=== PATIENT | male | born 1950 | race Caucasian/White ===

== ENCOUNTER 2017-10-25 16:05 | Emergency (ER) | payer SELFPAY, OTHER, MEDICARE | END 2017-10-25 21:07 | disposition left against medical advice (07) | LOC: E/R 16:05 | DX: Z53.21 Procedure and treatment not carried out due to patient leaving prior to being seen by health care provider (principal) ==

== ENCOUNTER 2017-11-22 15:49 | Inpatient (IN) | payer MEDICARE, OTHER ==
[2017-11-23 00:34] LABS: ADD MAN DIFF? NO
[2017-11-23 00:35] LABS: WHITE BLOOD COUNT 5.5 10^3/ul (4.8-10.8)
[2017-11-23 00:35] LABS: BASOPHIL # 0.1 10^3/ul (0.0-0.1); BASOPHILS % 1.1 % (0.0-2.0); EOSINOPHILS # 0.3 10^3/ul (0.0-0.5); EOSINOPHILS % 4.7 % (0.0-7.0); HEMATOCRIT 28.2 % (42.0-52.0); HEMOGLOBIN 9.4 g/dl (14.0-18.0); LYMPHOCYTES # 0.8 10^3/ul (0.8-2.9); LYMPHOCYTES % 13.8 % (15.0-51.0); MEAN CORPUSCULAR HEMOGLOBIN 30.5 pg (29.0-33.0); MEAN CORPUSCULAR HGB CONC 33.3 g/dl (32.0-37.0); MEAN CORPUSCULAR VOLUME 91.6 fl (82.0-101.0); MEAN PLATELET VOLUME 9.3 fl (7.4-10.4); MONOCYTE # 0.8 10^3/ul (0.3-0.9); MONOCYTES % 13.7 % (0.0-11.0); NEUTROPHIL # 3.6 10^3/ul (1.6-7.5); NEUTROPHILS % 66.3 % (39.0-77.0); PLATELET COUNT 101 10^3/UL (140-415); RED BLOOD COUNT 3.08 10^6/ul (4.70-6.10); RED CELL DISTRIBUTION WIDTH 16.5 % (11.5-14.5)
[2017-11-23 00:56] LABS: ALANINE AMINOTRANSFERASE 25 IU/L (13-69); ALBUMIN 3.4 g/dl (3.3-4.9); ALBUMIN/GLOBULIN RATIO 0.85; ALKALINE PHOSPHATASE 120 IU/L (42-121); ANION GAP 16 (8-16); ASPARTATE AMINO TRANSFERASE 26 IU/L (15-46); BILIRUBIN,INDIRECT 0.2 mg/dl (0-1.1); BILIRUBIN,TOTAL 0.2 mg/dl (0.2-1.3); BLOOD UREA NITROGEN 36 mg/dl (7-20); CALCIUM 8.7 mg/dl (8.4-10.2); CARBON DIOXIDE 30 mmol/L (21-31); CHLORIDE 95 mmol/L (97-110); CREATININE 5.52 mg/dl (0.61-1.24); GLUCOSE 102 mg/dl (70-220); LIPASE 28 U/L (23-300); POTASSIUM 4.3 mmol/L (3.5-5.1); SODIUM 137 mmol/L (135-144); TOTAL PROTEIN 7.4 g/dl (6.1-8.1)
[2017-11-23] MEDS: morphine 4 MG/ML VIAL IV (01:07)
[2017-11-23] MEDS: ONDANSETRON 4 MG INJ IV (01:07)
[2017-11-23] MEDS ORDERED: GLUCOSE GEL 15 GRAM TUBE PO ×2 (04:35)
[2017-11-23] MEDS ORDERED: GLUCOSE GEL 15 GRAM TUBE BUCCAL (04:35)
[2017-11-23] MEDS ORDERED: DEXTROSE 50% 50 ML SYRINGE IV (04:35)
[2017-11-23] MEDS ORDERED: GLUCAGON 1 MG INJ IM (04:35)
[2017-11-23] MEDS ORDERED: PENDING SANTYL ORDER FOR WOUND CARE XX (05:30)
[2017-11-23] MEDS: LEVOTHYROXINE 75 MCG TAB PO (06:24)
[2017-11-23 06:46] LABS: ADD MAN DIFF? NO
[2017-11-23 06:52] LABS: ABNORMAL IP MESSAGE 1; BASOPHIL # 0.1 10^3/ul (0.0-0.1); BASOPHILS % 1.3 % (0.0-2.0); EOSINOPHILS # 0.2 10^3/ul (0.0-0.5); HEMATOCRIT 26.1 % (42.0-52.0); HEMOGLOBIN 8.9 g/dl (14.0-18.0); LYMPHOCYTES # 1.1 10^3/ul (0.8-2.9); LYMPHOCYTES % 19.4 % (15.0-51.0); MEAN CORPUSCULAR HEMOGLOBIN 31.4 pg (29.0-33.0); MEAN CORPUSCULAR HGB CONC 34.1 g/dl (32.0-37.0); MEAN CORPUSCULAR VOLUME 92.2 fl (82.0-101.0); MEAN PLATELET VOLUME 10.4 fl (7.4-10.4); MONOCYTE # 0.9 10^3/ul (0.3-0.9); MONOCYTES % 15.6 % (0.0-11.0); NEUTROPHIL # 3.3 10^3/ul (1.6-7.5); NEUTROPHILS % 59.5 % (39.0-77.0); PLATELET COUNT 98 10^3/UL (140-415); POSITIVE DIFF @See below; RED BLOOD COUNT 2.83 10^6/ul (4.70-6.10); RED CELL DISTRIBUTION WIDTH 16.6 % (11.5-14.5)
[2017-11-23 06:52] LABS: WHITE BLOOD COUNT 5.5 10^3/ul (4.8-10.8)
[2017-11-23] MEDS ORDERED: EPINEPHrine 0.1 MG/ML SYG (07:00)
[2017-11-23] MEDS ORDERED: ATROPINE 1 MG/10 ML SYRINGE (07:00)
[2017-11-23] MEDS ORDERED: NALOXONE (0.4 MG/ML) INJ (07:00)
[2017-11-23 07:20] LABS: ALANINE AMINOTRANSFERASE 24 IU/L (13-69); ALBUMIN 3.1 g/dl (3.3-4.9); ALBUMIN/GLOBULIN RATIO 0.83; ALKALINE PHOSPHATASE 103 IU/L (42-121); ANION GAP 16 (8-16); ASPARTATE AMINO TRANSFERASE 24 IU/L (15-46); BILIRUBIN,INDIRECT 0.2 mg/dl (0-1.1); BILIRUBIN,TOTAL 0.2 mg/dl (0.2-1.3); BLOOD UREA NITROGEN 36 mg/dl (7-20); CALCIUM 8.4 mg/dl (8.4-10.2); CARBON DIOXIDE 29 mmol/L (21-31); CHLORIDE 97 mmol/L (97-110); CREATININE 5.73 mg/dl (0.61-1.24); GLUCOSE 66 mg/dl (70-220); POTASSIUM 4.3 mmol/L (3.5-5.1); SODIUM 138 mmol/L (135-144); TOTAL PROTEIN 6.8 g/dl (6.1-8.1); URIC ACID 6.1 mg/dl (3.1-7.9)
[2017-11-23] MEDS: SEVELAMER CARBONATE 0.8 GM PKT PO ×3 (08:04→23:29)
[2017-11-23] MEDS: MULTIVIT/CA CARB/B CMPLX/FA TAB PO (08:05)
[2017-11-23] MEDS: FOLIC ACID 1 MG TAB PO (08:05)
[2017-11-23] MEDS: GABAPENTIN 300 MG CAP PO ×2 (08:05→12:14)
[2017-11-23] MEDS: traMADol 50 MG TAB PO (08:07)
[2017-11-23] MEDS: ISOSORBIDE MONONITRATE(SR)60 MG TAB PO (08:07)
[2017-11-23] MEDS: AMLODIPINE 10 MG TAB PO (08:07)
[2017-11-23] MEDS: INSULIN ASPART [NOVOLOG] 3 ML PEN SC ×3 (08:15→17:35)
[2017-11-23] MEDS: DEXTROSE 5%-0.45% NACL 1,000 ML IV (14:53)
[2017-11-23] MEDS ORDERED: DEXTROSE 5%-0.45% NACL 500 ML IV (15:00)
[2017-11-23] MEDS ORDERED: SOD CHLORIDE 0.9% 1,000 ML IV (16:29)
[2017-11-23] MEDS ORDERED: ALBUMIN HUMAN 25% 50 ML IV (16:30)
[2017-11-23] MEDS ORDERED: SODIUM CHLORIDE 0.9% 1L BAG IV (16:30)
[2017-11-23 17:34] LABS: IRON 44 ug/dl (35-150)
[2017-11-23 17:35] LABS: URIC ACID 6.5 mg/dl (3.1-7.9)
[2017-11-23 17:45] LABS: % IRON SATURATION 28 % SAT (22-52); TOTAL IRON BINDING CAPACITY 156 ug/dl (241-421)
[2017-11-23] MEDS: DEXTROSE 50% 50 ML SYRINGE IV (17:57)
[2017-11-23 18:07] LABS: HEPATITIS B SURFACE ANTIGEN NEGATIVE (NEGATIVE)
[2017-11-23 18:25] LABS: HEPATITIS B CORE ANTIBODY NEGATIVE (NEGATIVE); HEPATITIS C VIRAL ANTIBODY NEGATIVE (NEGATIVE)
[2017-11-23] MEDS: INSULIN GLARGINE [LANtus] 3 ML PEN SC (21:00)
[2017-11-23] MEDS: BALSAM PERU/CASTOR OIL 60 GM TUBE TOP (21:00)
[2017-11-24] MEDS: LEVOTHYROXINE 75 MCG TAB PO (05:52)
[2017-11-24] MEDS: traMADol 50 MG TAB PO (05:58)
[2017-11-24] MEDS: INSULIN ASPART [NOVOLOG] 3 ML PEN SC (07:35)
[2017-11-24] MEDS ORDERED: NALOXONE (0.4 MG/ML) INJ ×2 (08:39→08:43)
[2017-11-24] MEDS: AMLODIPINE 10 MG TAB PO ×2 (09:00→23:28)
[2017-11-24] MEDS: MULTIVIT/CA CARB/B CMPLX/FA TAB PO (09:00)
[2017-11-24] MEDS: BALSAM PERU/CASTOR OIL 60 GM TUBE TOP ×2 (09:00→23:28)
[2017-11-24] MEDS: SEVELAMER CARBONATE 0.8 GM PKT PO ×3 (09:00→23:28)
[2017-11-24] MEDS: ISOSORBIDE MONONITRATE(SR)60 MG TAB PO (09:00)
[2017-11-24] MEDS: FOLIC ACID 1 MG TAB PO (09:00)
[2017-11-24] MEDS: PROPOFOL 100 ML IV ×3 (10:00→20:40)
[2017-11-24 10:21] LABS: AADO2 Arterial 357.5 mmHg (7.0-24.0); Allen Test ACCEPTAB; Arterial Base Excess 0.3 mmol/L (-3.0-3); Arterial Blood Gas Oxygen Sat 99.4 mmHG (95.0-98.0); Arterial COHb 0.3 % (0.0-3.0); Arterial Fraction of Oxyhgb 98.7 % (93.0-99.0); Arterial HCO3 24.4 mmol/L (22.0-26.0); Arterial MetHb 0.4 % (0.0-1.5); Arterial Total Hemglobin 10.1 g/dl (12.0-18.0); Arterial pCO2 37.1 mmhg (35-45); MODE VENT - AC; Site Left Radial
[2017-11-24] MEDS: CEFEPIME 1GM/50 ML (PMX) 50 ML IVPB (11:00)
[2017-11-24] MEDS: DEXTROSE 5%-0.45% NACL 1,000 ML IV (11:30)
[2017-11-24 12:29] LABS: ADD MAN DIFF? NO
[2017-11-24 12:34] LABS: WHITE BLOOD COUNT 8.8 10^3/ul (4.8-10.8)
[2017-11-24 12:34] LABS: BASOPHILS % 0.5 % (0.0-2.0); EOSINOPHILS % 0.5 % (0.0-7.0); HEMATOCRIT 26.9 % (42.0-52.0); HEMOGLOBIN 8.9 g/dl (14.0-18.0); LYMPHOCYTES # 0.8 10^3/ul (0.8-2.9); LYMPHOCYTES % 8.9 % (15.0-51.0); MEAN CORPUSCULAR HEMOGLOBIN 30.7 pg (29.0-33.0); MEAN CORPUSCULAR HGB CONC 33.1 g/dl (32.0-37.0); MEAN CORPUSCULAR VOLUME 92.8 fl (82.0-101.0); MONOCYTES % 11.4 % (0.0-11.0); NEUTROPHIL # 6.9 10^3/ul (1.6-7.5); NEUTROPHILS % 78.2 % (39.0-77.0); PLATELET COUNT 102 10^3/UL (140-415)
[2017-11-24 12:54] LABS: ANION GAP 17 (8-16); BLOOD UREA NITROGEN 45 mg/dl (7-20); CALCIUM 7.8 mg/dl (8.4-10.2); CARBON DIOXIDE 24 mmol/L (21-31); CHLORIDE 95 mmol/L (97-110); CREATININE 6.62 mg/dl (0.61-1.24); GLUCOSE 76 mg/dl (70-220); SODIUM 131 mmol/L (135-144)
[2017-11-24 12:56] LABS: CREATINE KINASE 101 IU/L (23-200)
[2017-11-24 12:59] LABS: POTASSIUM 5.1 mmol/L (3.5-5.1)
[2017-11-24] MEDS: hydrALAzine 20 MG INJ IV ×2 (12:59→18:48)
[2017-11-24 13:00] LABS: AMMONIA < 9 umol/l (9-30)
[2017-11-24 13:01] LABS: LACTIC ACID 2.2 mmol/L (0.5-2.0)
[2017-11-24 13:05] LABS: CK INDEX 4.7; TROPONIN-I 0.061 ng/ml (0.00-0.12)
[2017-11-24 13:06] LABS: CK-MB 4.76 ng/ml (0.0-2.4)
[2017-11-24 13:51] LABS: LACTATE DEHYDROGENASE 487 IU/L (313-618)
[2017-11-24 13:51] LABS: URIC ACID 7.6 mg/dl (3.1-7.9)
[2017-11-24] MEDS: EPOETIN 4000 UNITS/1 ML INJ (ESRD) SC (18:48)
[2017-11-24 18:57] LABS: CREATINE KINASE 115 IU/L (23-200)
[2017-11-24 19:07] LABS: CK INDEX 4.3; TROPONIN-I 0.128 ng/ml (0.00-0.12)
[2017-11-24 19:18] LABS: CK-MB 4.97 ng/ml (0.0-2.4)
[2017-11-24] MEDS ORDERED: SODIUM CHLORIDE 0.9% 1L BAG IV (19:30)
[2017-11-24] MEDS: HEPARIN 5,000 UNIT/0.5 ML VIAL SC (20:41)
[2017-11-24 21:01] LABS: RHEUMATOID FACTOR NEGATIVE (NEGATIVE)
[2017-11-25 01:34] LABS: CREATINE KINASE 83 IU/L (23-200)
[2017-11-25 01:41] LABS: CK INDEX 5.2
[2017-11-25 01:43] LABS: CK-MB 4.34 ng/ml (0.0-2.4)
[2017-11-25] MEDS: DEXTROSE 5%-0.45% NACL 1,000 ML IV ×2 (03:24→18:02)
[2017-11-25 05:38] LABS: ADD MAN DIFF? NO
[2017-11-25 05:39] LABS: WHITE BLOOD COUNT 5.8 10^3/ul (4.8-10.8)
[2017-11-25 05:39] LABS: ABNORMAL IP MESSAGE 1; BASOPHIL # 0.1 10^3/ul (0.0-0.1); BASOPHILS % 0.9 % (0.0-2.0); EOSINOPHILS # 0.2 10^3/ul (0.0-0.5); EOSINOPHILS % 3.3 % (0.0-7.0); HEMATOCRIT 25.4 % (42.0-52.0); HEMOGLOBIN 8.6 g/dl (14.0-18.0); LYMPHOCYTES # 1.3 10^3/ul (0.8-2.9); LYMPHOCYTES % 21.9 % (15.0-51.0); MEAN CORPUSCULAR HEMOGLOBIN 30.5 pg (29.0-33.0); MEAN CORPUSCULAR HGB CONC 33.9 g/dl (32.0-37.0); MEAN CORPUSCULAR VOLUME 90.1 fl (82.0-101.0); MEAN PLATELET VOLUME 10.6 fl (7.4-10.4); MONOCYTE # 0.7 10^3/ul (0.3-0.9); MONOCYTES % 11.5 % (0.0-11.0); NEUTROPHIL # 3.6 10^3/ul (1.6-7.5); NEUTROPHILS % 61.9 % (39.0-77.0); PLATELET COUNT 97 10^3/UL (140-415); POSITIVE DIFF @See below; RED BLOOD COUNT 2.82 10^6/ul (4.70-6.10); RED CELL DISTRIBUTION WIDTH 16.4 % (11.5-14.5)
[2017-11-25 06:05] LABS: PHOSPHORUS 4.9 mg/dl (2.5-4.9)
[2017-11-25 06:05] LABS: MAGNESIUM 2.5 mg/dl (1.7-2.5)
[2017-11-25 06:08] LABS: ANION GAP 18 (8-16); BLOOD UREA NITROGEN 47 mg/dl (7-20); CARBON DIOXIDE 25 mmol/L (21-31); CHLORIDE 93 mmol/L (97-110); CREATININE 7.08 mg/dl (0.61-1.24); GLUCOSE 68 mg/dl (70-220); POTASSIUM 4.7 mmol/L (3.5-5.1); SODIUM 131 mmol/L (135-144)
[2017-11-25] MEDS: hydrALAzine 20 MG INJ IV ×2 (06:26→20:24)
[2017-11-25 07:22] LABS: CHOLESTEROL 89 mg/dl (100-200)
[2017-11-25 07:22] LABS: CHOL/HDL RATIO 2.9 RATIO; HDL CHOLESTEROL 30 mg/dl (30-78); LDL CHOLESTEROL,CALCULATED 24 mg/dl; TRIGLYCERIDES 176 mg/dl (0-149)
[2017-11-25] MEDS ORDERED: ISOSORBIDE MONONITRATE(SR)30 MG TAB PO (09:00)
[2017-11-25] MEDS ORDERED: ISOSORBIDE MONONITRATE(SR)60 MG TAB PO (09:00)
[2017-11-25] MEDS: FOLIC ACID 1 MG TAB PO (09:12)
[2017-11-25] MEDS: LEVOTHYROXINE 75 MCG TAB PO (09:12)
[2017-11-25] MEDS: MULTIVIT/CA CARB/B CMPLX/FA TAB PO (09:13)
[2017-11-25] MEDS: AMLODIPINE 10 MG TAB PO (09:13)
[2017-11-25] MEDS: SEVELAMER CARBONATE 0.8 GM PKT PO ×3 (09:13→20:29)
[2017-11-25] MEDS: BALSAM PERU/CASTOR OIL 60 GM TUBE TOP ×2 (09:14→20:24)
[2017-11-25] MEDS: HEPARIN 5,000 UNIT/0.5 ML VIAL SC ×2 (09:14→20:16)
[2017-11-25] MEDS: ISOSORBIDE DINITRATE 20 MG TAB PO ×3 (11:00→20:13)
[2017-11-25] MEDS: CEFEPIME 1GM/50 ML (PMX) 50 ML IVPB (13:00)
[2017-11-25] MEDS: CLONIDINE 0.1 MG/24 HR PATCH TRANSDERM (13:00)
[2017-11-25 13:05] LABS: AADO2 Arterial 35.4 mmHg (7.0-24.0); Allen Test ACCEPTAB; Arterial Base Excess -0.4 mmol/L (-3.0-3); Arterial Blood Gas Oxygen Sat 98.5 mmHG (95.0-98.0); Arterial COHb 0.2 % (0.0-3.0); Arterial HCO3 23.4 mmol/L (22.0-26.0); Arterial MetHb 0.3 % (0.0-1.5); Arterial Total Hemglobin 10.8 g/dl (12.0-18.0); Arterial pCO2 35.2 mmhg (35-45); Blood Gas PS 10; MODE VENT - CPAP; Site Left Radial
[2017-11-25 13:42] LABS: ANA SCREEN NEGATIVE (NEGATIVE)
[2017-11-25 23:52] LABS: ALBUMIN 2.8 g/dL (3.8-4.8); ALPHA-1-GLOBULINS 0.3 g/dL (0.2-0.3); ALPHA-2-GLOBULINS 0.4 g/dL (0.5-0.9); BETA 2 GLOBULINS 0.6 g/dL (0.2-0.5); BETA GLOBULINS 0.3 g/dL (0.4-0.6); GAMMA GLOBULINS 1.6 g/dL (0.8-1.7)
[2017-11-26 05:20] LABS: ADD MAN DIFF? NO
[2017-11-26 05:24] LABS: WHITE BLOOD COUNT 11.3 10^3/ul (4.8-10.8)
[2017-11-26 05:24] LABS: ABNORMAL IP MESSAGE 1; BASOPHILS % 0.4 % (0.0-2.0); EOSINOPHILS # 0.1 10^3/ul (0.0-0.5); EOSINOPHILS % 1.2 % (0.0-7.0); HEMATOCRIT 25.5 % (42.0-52.0); HEMOGLOBIN 8.5 g/dl (14.0-18.0); LYMPHOCYTES # 0.8 10^3/ul (0.8-2.9); MEAN CORPUSCULAR HEMOGLOBIN 30.6 pg (29.0-33.0); MEAN CORPUSCULAR HGB CONC 33.3 g/dl (32.0-37.0); MEAN CORPUSCULAR VOLUME 91.7 fl (82.0-101.0); MEAN PLATELET VOLUME 10.5 fl (7.4-10.4); MONOCYTE # 0.8 10^3/ul (0.3-0.9); MONOCYTES % 7.1 % (0.0-11.0); NEUTROPHIL # 9.4 10^3/ul (1.6-7.5); NEUTROPHILS % 83.8 % (39.0-77.0); PLATELET COUNT 97 10^3/UL (140-415); POSITIVE DIFF @See below; RED BLOOD COUNT 2.78 10^6/ul (4.70-6.10); RED CELL DISTRIBUTION WIDTH 16.3 % (11.5-14.5)
[2017-11-26 05:52] LABS: ANION GAP 12 (8-16); BLOOD UREA NITROGEN 27 mg/dl (7-20); CALCIUM 8.1 mg/dl (8.4-10.2); CARBON DIOXIDE 30 mmol/L (21-31); CHLORIDE 97 mmol/L (97-110); CREATININE 4.78 mg/dl (0.61-1.24); GLUCOSE 116 mg/dl (70-220); POTASSIUM 4.3 mmol/L (3.5-5.1); SODIUM 135 mmol/L (135-144)
[2017-11-26 06:01] LABS: MAGNESIUM 2.5 mg/dl (1.7-2.5)
[2017-11-26 06:01] LABS: PHOSPHORUS 4.6 mg/dl (2.5-4.9)
[2017-11-26] MEDS: LEVOTHYROXINE 75 MCG TAB PO (07:01)
[2017-11-26] MEDS: DEXTROSE 5%-0.45% NACL 1,000 ML IV (08:20)
[2017-11-26 08:47] LABS: AADO2 Arterial 67.2 mmHg (7.0-24.0); Allen Test ACCEPTAB; Arterial Blood Gas Oxygen Sat 93.8 mmHG (95.0-98.0); Arterial COHb 0.2 % (0.0-3.0); Arterial Fraction of Oxyhgb 93.3 % (93.0-99.0); Arterial MetHb 0.3 % (0.0-1.5); Arterial Total Hemglobin 9.7 g/dl (12.0-18.0); Arterial pCO2 44.6 mmhg (35-45); MODE NASAL CANNULA; Site Left Radial
[2017-11-26] MEDS: ISOSORBIDE DINITRATE 20 MG TAB PO ×3 (09:06→20:46)
[2017-11-26] MEDS: AMLODIPINE 10 MG TAB PO (09:06)
[2017-11-26] MEDS: FOLIC ACID 1 MG TAB PO (09:06)
[2017-11-26] MEDS: MULTIVIT/CA CARB/B CMPLX/FA TAB PO (09:06)
[2017-11-26] MEDS: HEPARIN 5,000 UNIT/0.5 ML VIAL SC (09:08)
[2017-11-26] MEDS: BALSAM PERU/CASTOR OIL 60 GM TUBE TOP ×2 (09:10→20:46)
[2017-11-26] MEDS: SEVELAMER CARBONATE 0.8 GM PKT PO ×3 (09:27→20:44)
[2017-11-26 10:46] LABS: PLATELET COUNT 94 10^3/UL (140-415)
[2017-11-26 11:07] LABS: INR 1.34; PROTIME 16.8 Sec (11.9-14.9); PT RATIO 1.3
[2017-11-26 11:08] LABS: PARTIAL THROMBOPLASTIN TIME 55.7 Sec (25.0-35.0)
[2017-11-26] MEDS: CEFEPIME 1GM/50 ML (PMX) 50 ML IVPB (11:17)
[2017-11-26 11:53] LABS: THROMBIN TIME 17.3 SEC (13.8-19.1)
[2017-11-26] MEDS: EPOETIN 4000 UNITS/1 ML INJ (ESRD) SC (16:56)
[2017-11-27 05:57] LABS: ADD MAN DIFF? NO
[2017-11-27 05:59] LABS: BASOPHILS % 0.4 % (0.0-2.0); EOSINOPHILS # 0.2 10^3/ul (0.0-0.5); EOSINOPHILS % 1.9 % (0.0-7.0); HEMATOCRIT 24.2 % (42.0-52.0); LYMPHOCYTES # 0.9 10^3/ul (0.8-2.9); LYMPHOCYTES % 8.9 % (15.0-51.0); MEAN CORPUSCULAR HEMOGLOBIN 30.4 pg (29.0-33.0); MEAN CORPUSCULAR HGB CONC 33.1 g/dl (32.0-37.0); MEAN PLATELET VOLUME 10.2 fl (7.4-10.4); MONOCYTE # 0.9 10^3/ul (0.3-0.9); MONOCYTES % 8.7 % (0.0-11.0); NEUTROPHILS % 79.7 % (39.0-77.0); PLATELET COUNT 104 10^3/UL (140-415); RED BLOOD COUNT 2.63 10^6/ul (4.70-6.10)
[2017-11-27 05:59] LABS: WHITE BLOOD COUNT 10.1 10^3/ul (4.8-10.8)
[2017-11-27 06:23] LABS: ANION GAP 15 (8-16); BLOOD UREA NITROGEN 36 mg/dl (7-20); CARBON DIOXIDE 28 mmol/L (21-31); CHLORIDE 93 mmol/L (97-110); CREATININE 5.15 mg/dl (0.61-1.24); GLUCOSE 92 mg/dl (70-220); MAGNESIUM 2.5 mg/dl (1.7-2.5); PHOSPHORUS 5.1 mg/dl (2.5-4.9); POTASSIUM 4.9 mmol/L (3.5-5.1); SODIUM 131 mmol/L (135-144)
[2017-11-27] MEDS: LEVOTHYROXINE 75 MCG TAB PO (06:29)
[2017-11-27] MEDS ORDERED: SODIUM CHLORIDE 0.9% 1L BAG IV (07:30)
[2017-11-27] MEDS: ISOSORBIDE DINITRATE 20 MG TAB PO ×3 (08:44→20:57)
[2017-11-27] MEDS: AMLODIPINE 5 MG TAB PO (08:44)
[2017-11-27] MEDS: MULTIVIT/CA CARB/B CMPLX/FA TAB PO (08:44)
[2017-11-27] MEDS: FOLIC ACID 1 MG TAB PO (08:44)
[2017-11-27] MEDS: BALSAM PERU/CASTOR OIL 60 GM TUBE TOP ×2 (08:45→20:55)
[2017-11-27] MEDS: SEVELAMER CARBONATE 0.8 GM PKT PO ×3 (08:45→20:57)
[2017-11-27] MEDS: LIDOCAINE 1% (MPF) 5 ML VIAL (11:05)
[2017-11-27] MEDS: CEFEPIME 1GM/50 ML (PMX) 50 ML IVPB (11:10)
[2017-11-27 16:44] LABS: FLD PMN% 87.9 %; FLD RBC 59000 /uL; FLD WBC 13385 /cmm
[2017-11-27 18:34] LABS: FLUID LD 569 U/L; FLUID TOTAL PROTEIN 2.6 g/dl; FLUID TYPE THORACENTESIS FLUID
[2017-11-27 18:39] LABS: FLUID GLUCOSE 68 mg/dl; FLUID TYPE THORACENTESIS FLUID
[2017-11-27 18:42] LABS: FLD CLARITY BLOODY; FLD COLOR RED; FLD MN% 12.1 %
[2017-11-27 18:42] LABS: FLD TYPE THORACENTHESIS
[2017-11-27] MEDS: ALBUMIN HUMAN 25% 50 ML IV ×2 (18:56→19:28)
[2017-11-28] MEDS: LEVOTHYROXINE 75 MCG TAB PO (07:35)
[2017-11-28] MEDS: ISOSORBIDE DINITRATE 20 MG TAB PO ×3 (09:00→20:11)
[2017-11-28] MEDS: FOLIC ACID 1 MG TAB PO (09:00)
[2017-11-28] MEDS: MULTIVIT/CA CARB/B CMPLX/FA TAB PO (09:01)
[2017-11-28] MEDS: SEVELAMER CARBONATE 0.8 GM PKT PO ×3 (09:01→20:11)
[2017-11-28] MEDS: BALSAM PERU/CASTOR OIL 60 GM TUBE TOP ×2 (09:02→20:23)
[2017-11-28] MEDS: CEFEPIME 1GM/50 ML (PMX) 50 ML IVPB (11:10)
[2017-11-28] MEDS: HEPARIN 5,000 UNIT/0.5 ML VIAL SC ×2 (11:11→20:21)
[2017-11-28] MEDS: REGADENOSON 0.4 MG/5 ML SYG (12:49)
[2017-11-28] MEDS ORDERED: SODIUM CHLORIDE 0.9% 1L BAG IV (18:00)
[2017-11-28] MEDS ORDERED: ALBUMIN HUMAN 25% 50 ML IV (18:00)
[2017-11-29] MEDS: LEVOTHYROXINE 75 MCG TAB PO (06:53)
[2017-11-29 08:07] LABS: ADD MAN DIFF? NO
[2017-11-29 08:12] LABS: BASOPHIL # 0.1 10^3/ul (0.0-0.1); BASOPHILS % 0.9 % (0.0-2.0); EOSINOPHILS # 0.3 10^3/ul (0.0-0.5); EOSINOPHILS % 4.5 % (0.0-7.0); HEMATOCRIT 26.1 % (42.0-52.0); HEMOGLOBIN 8.6 g/dl (14.0-18.0); LYMPHOCYTES # 0.8 10^3/ul (0.8-2.9); LYMPHOCYTES % 11.9 % (15.0-51.0); MEAN CORPUSCULAR HEMOGLOBIN 30.5 pg (29.0-33.0); MEAN CORPUSCULAR VOLUME 92.6 fl (82.0-101.0); MEAN PLATELET VOLUME 10.3 fl (7.4-10.4); MONOCYTE # 0.7 10^3/ul (0.3-0.9); MONOCYTES % 9.2 % (0.0-11.0); NEUTROPHIL # 5.2 10^3/ul (1.6-7.5); NEUTROPHILS % 73.2 % (39.0-77.0); PLATELET COUNT 118 10^3/UL (140-415); RED BLOOD COUNT 2.82 10^6/ul (4.70-6.10); RED CELL DISTRIBUTION WIDTH 15.8 % (11.5-14.5)
[2017-11-29 08:12] LABS: WHITE BLOOD COUNT 7.1 10^3/ul (4.8-10.8)
[2017-11-29 08:30] LABS: ANION GAP 15 (8-16); BLOOD UREA NITROGEN 32 mg/dl (7-20); CALCIUM 8.3 mg/dl (8.4-10.2); CARBON DIOXIDE 29 mmol/L (21-31); CHLORIDE 96 mmol/L (97-110); CREATININE 4.36 mg/dl (0.61-1.24); GLUCOSE 119 mg/dl (70-220); POTASSIUM 4.7 mmol/L (3.5-5.1); SODIUM 135 mmol/L (135-144)
[2017-11-29] MEDS: FOLIC ACID 1 MG TAB PO (08:42)
[2017-11-29] MEDS: SEVELAMER CARBONATE 0.8 GM PKT PO ×3 (08:42→20:47)
[2017-11-29] MEDS: MULTIVIT/CA CARB/B CMPLX/FA TAB PO (08:42)
[2017-11-29] MEDS: ISOSORBIDE DINITRATE 20 MG TAB PO ×3 (08:43→20:47)
[2017-11-29] MEDS: HEPARIN 5,000 UNIT/0.5 ML VIAL SC ×2 (08:44→20:48)
[2017-11-29] MEDS: BALSAM PERU/CASTOR OIL 60 GM TUBE TOP ×2 (08:45→20:49)
[2017-11-29 08:47] LABS: MAGNESIUM 2.5 mg/dl (1.7-2.5)
[2017-11-29 08:47] LABS: PHOSPHORUS 4.6 mg/dl (2.5-4.9)
[2017-11-29] MEDS: CEFEPIME 1GM/50 ML (PMX) 50 ML IVPB (13:01)
[2017-11-29] MEDS: ACETAMINOPHEN 325 MG TAB PO (16:56)
[2017-11-29] MEDS: EPOETIN 10000 UNITS/1 ML INJ (ESRD) SC (16:57)
[2017-11-29] MEDS ORDERED: EPOETIN 10000 UNITS/1 ML INJ (ESRD) SC (17:00)
[2017-11-29 21:43] LABS: PLATELET ANTIBODY - IGA POSITIVE (NEGATIVE); PLATELET ANTIBODY - IGG NEGATIVE (NEGATIVE); PLATELET ANTIBODY - IGM NEGATIVE (NEGATIVE)
[2017-11-30] MEDS: ACETAMINOPHEN 325 MG TAB PO ×2 (00:35→06:08)
[2017-11-30] MEDS: LEVOTHYROXINE 75 MCG TAB PO (06:08)
[2017-11-30] MEDS: FOLIC ACID 1 MG TAB PO (08:48)
[2017-11-30] MEDS: MULTIVIT/CA CARB/B CMPLX/FA TAB PO (08:48)
[2017-11-30] MEDS: SEVELAMER CARBONATE 0.8 GM PKT PO ×3 (08:48→21:00)
[2017-11-30] MEDS: ISOSORBIDE DINITRATE 20 MG TAB PO ×2 (08:48→12:14)
[2017-11-30] MEDS: HEPARIN 5,000 UNIT/0.5 ML VIAL SC ×2 (08:54→21:00)
[2017-11-30] MEDS: BALSAM PERU/CASTOR OIL 60 GM TUBE TOP ×2 (09:00→21:00)
[2017-11-30] MEDS: CEFEPIME 1GM/50 ML (PMX) 50 ML IVPB (12:18)
[2017-11-30 20:12] LABS: Allen Test ACCEPTAB; Arterial Base Excess 1.7 mmol/L (-3.0-3); Arterial Blood Gas Oxygen Sat 99.4 mmHG (95.0-98.0); Arterial COHb 0.3 % (0.0-3.0); Arterial Fraction of Oxyhgb 98.9 % (93.0-99.0); Arterial HCO3 25.4 mmol/L (22.0-26.0); Arterial MetHb 0.2 % (0.0-1.5); Arterial Total Hemglobin 11.1 g/dl (12.0-18.0); Arterial pCO2 36.5 mmhg (35-45); MODE VENT - AC; Site Left Radial
[2017-11-30] MEDS: ISOSORBIDE DINITRATE 10 MG TAB PO (21:00)
[2017-11-30] MEDS: PROPOFOL 100 ML IV (21:09)
[2017-11-30 22:13] LABS: ADD MAN DIFF? NO
[2017-11-30 22:16] LABS: ABNORMAL IP MESSAGE 1; BASOPHILS % 0.2 % (0.0-2.0); EOSINOPHILS % 0.2 % (0.0-7.0); HEMATOCRIT 28.3 % (42.0-52.0); HEMOGLOBIN 9.4 g/dl (14.0-18.0); LYMPHOCYTES # 0.5 10^3/ul (0.8-2.9); LYMPHOCYTES % 5.8 % (15.0-51.0); MEAN CORPUSCULAR HEMOGLOBIN 30.5 pg (29.0-33.0); MEAN CORPUSCULAR HGB CONC 33.2 g/dl (32.0-37.0); MEAN CORPUSCULAR VOLUME 91.9 fl (82.0-101.0); MONOCYTE # 0.8 10^3/ul (0.3-0.9); MONOCYTES % 9.9 % (0.0-11.0); NEUTROPHIL # 7.1 10^3/ul (1.6-7.5); NEUTROPHILS % 83.3 % (39.0-77.0); PLATELET COUNT 114 10^3/UL (140-415); POSITIVE DIFF @See below; RED BLOOD COUNT 3.08 10^6/ul (4.70-6.10); RED CELL DISTRIBUTION WIDTH 15.9 % (11.5-14.5)
[2017-11-30 22:16] LABS: WHITE BLOOD COUNT 8.5 10^3/ul (4.8-10.8)
[2017-11-30 22:34] LABS: ANION GAP 18 (8-16); BLOOD UREA NITROGEN 28 mg/dl (7-20); CARBON DIOXIDE 27 mmol/L (21-31); CHLORIDE 95 mmol/L (97-110); CREATININE 4.15 mg/dl (0.61-1.24); GLUCOSE 148 mg/dl (70-220); POTASSIUM 5.3 mmol/L (3.5-5.1); SODIUM 135 mmol/L (135-144)
[2017-12-01] MEDS: PROPOFOL 100 ML IV ×3 (01:54→12:49)
[2017-12-01 05:21] LABS: HEMATOCRIT 25.9 % (42.0-52.0)
[2017-12-01] MEDS: SEVELAMER CARBONATE 0.8 GM PKT PO ×3 (09:45→21:52)
[2017-12-01] MEDS: ISOSORBIDE DINITRATE 10 MG TAB PO ×3 (09:46→21:51)
[2017-12-01] MEDS: MULTIVIT/CA CARB/B CMPLX/FA TAB PO (09:46)
[2017-12-01] MEDS: HEPARIN 5,000 UNIT/0.5 ML VIAL SC ×2 (09:47→21:57)
[2017-12-01] MEDS: FOLIC ACID 1 MG TAB PO (09:48)
[2017-12-01] MEDS: LEVOTHYROXINE 75 MCG TAB PO (09:48)
[2017-12-01] MEDS: BETAMETHASONE/CLOTRIMAZOLE 15 GM CR TOP ×2 (09:58→21:57)
[2017-12-01] MEDS: CEFEPIME 1GM/50 ML (PMX) 50 ML IVPB (12:26)
[2017-12-01] MEDS: SOD CHLORIDE 0.9% 100 ML (14:02)
[2017-12-01] MEDS: IOHEXOL 100 ML (14:02)
[2017-12-01] MEDS: BALSAM PERU/CASTOR OIL 60 GM TUBE TOP ×2 (17:05→21:58)
[2017-12-01] MEDS: COLLAGENASE 30 GM TUBE TOP (17:05)
[2017-12-01 17:20] LABS: AMMONIA < 9 umol/l (9-30)
[2017-12-01] MEDS: EPOETIN 10000 UNITS/1 ML INJ (ESRD) SC (18:04)
[2017-12-01] MEDS: ALBUMIN HUMAN 25% 50 ML IV (19:21)
[2017-12-02 05:36] LABS: ADD MAN DIFF? NO
[2017-12-02 05:47] LABS: BASOPHIL # 0.1 10^3/ul (0.0-0.1); BASOPHILS % 0.9 % (0.0-2.0); EOSINOPHILS # 0.2 10^3/ul (0.0-0.5); EOSINOPHILS % 2.8 % (0.0-7.0); HEMATOCRIT 26.7 % (42.0-52.0); HEMOGLOBIN 9.2 g/dl (14.0-18.0); LYMPHOCYTES # 0.9 10^3/ul (0.8-2.9); LYMPHOCYTES % 16.1 % (15.0-51.0); MEAN CORPUSCULAR HEMOGLOBIN 30.7 pg (29.0-33.0); MEAN CORPUSCULAR HGB CONC 34.5 g/dl (32.0-37.0); MEAN PLATELET VOLUME 10.9 fl (7.4-10.4); MONOCYTE # 0.4 10^3/ul (0.3-0.9); NEUTROPHIL # 4.2 10^3/ul (1.6-7.5); NEUTROPHILS % 72.9 % (39.0-77.0); PLATELET COUNT 117 10^3/UL (140-415); RED CELL DISTRIBUTION WIDTH 15.5 % (11.5-14.5)
[2017-12-02 05:47] LABS: WHITE BLOOD COUNT 5.7 10^3/ul (4.8-10.8)
[2017-12-02] MEDS: hydrALAzine 20 MG INJ IV (05:48)
[2017-12-02 06:12] LABS: ANION GAP 17 (8-16); BLOOD UREA NITROGEN 22 mg/dl (7-20); CALCIUM 8.4 mg/dl (8.4-10.2); CARBON DIOXIDE 27 mmol/L (21-31); CHLORIDE 97 mmol/L (97-110); CREATININE 3.27 mg/dl (0.61-1.24); GLUCOSE 137 mg/dl (70-220); MAGNESIUM 2.3 mg/dl (1.7-2.5); PHOSPHORUS 2.8 mg/dl (2.5-4.9); POTASSIUM 3.8 mmol/L (3.5-5.1); SODIUM 137 mmol/L (135-144)
[2017-12-02 07:56] LABS: AADO2 Arterial 96.4 mmHg (7.0-24.0); Allen Test ACCEPTAB; Arterial Base Excess 3.8 mmol/L (-3.0-3); Arterial Blood Gas Oxygen Sat 96.6 mmHG (95.0-98.0); Arterial COHb 0.3 % (0.0-3.0); Arterial Fraction of Oxyhgb 96.1 % (93.0-99.0); Arterial HCO3 25.6 mmol/L (22.0-26.0); Arterial MetHb 0.2 % (0.0-1.5); Arterial Total Hemglobin 10.5 g/dl (12.0-18.0); Arterial pCO2 29.3 mmhg (35-45); MODE VENT - AC; Site Right Radial
[2017-12-02] MEDS: FOLIC ACID 1 MG TAB PO (09:10)
[2017-12-02] MEDS: BETAMETHASONE/CLOTRIMAZOLE 15 GM CR TOP ×2 (09:10→21:54)
[2017-12-02] MEDS: BALSAM PERU/CASTOR OIL 60 GM TUBE TOP ×2 (09:10→21:54)
[2017-12-02] MEDS: LEVOTHYROXINE 75 MCG TAB PO (09:10)
[2017-12-02] MEDS: COLLAGENASE 30 GM TUBE TOP (09:10)
[2017-12-02] MEDS: ISOSORBIDE DINITRATE 10 MG TAB PO ×3 (09:10→21:53)
[2017-12-02] MEDS: MULTIVIT/CA CARB/B CMPLX/FA TAB PO (09:10)
[2017-12-02] MEDS: SEVELAMER CARBONATE 0.8 GM PKT PO ×3 (09:19→21:53)
[2017-12-02] MEDS: HEPARIN 5,000 UNIT/0.5 ML VIAL SC ×2 (09:23→22:02)
[2017-12-02] MEDS: PROPOFOL 100 ML IV ×2 (09:57→16:42)
[2017-12-02] MEDS: CEFEPIME 1GM/50 ML (PMX) 50 ML IVPB (11:58)
[2017-12-02 16:02] LABS: LACTIC ACID 1.7 mmol/L (0.5-2.0)
[2017-12-03 05:20] LABS: HEMOGLOBIN 9.1 g/dl (14.0-18.0)
[2017-12-03 05:20] LABS: HEMATOCRIT 26.8 % (42.0-52.0)
[2017-12-03 05:51] LABS: ALANINE AMINOTRANSFERASE 26 IU/L (13-69); ALBUMIN 2.5 g/dl (3.3-4.9); ALBUMIN/GLOBULIN RATIO 0.69; ALKALINE PHOSPHATASE 130 IU/L (42-121); ANION GAP 15 (8-16); ASPARTATE AMINO TRANSFERASE 13 IU/L (15-46); BLOOD UREA NITROGEN 30 mg/dl (7-20); CALCIUM 8.6 mg/dl (8.4-10.2); CARBON DIOXIDE 26 mmol/L (21-31); CHLORIDE 99 mmol/L (97-110); CREATININE 3.78 mg/dl (0.61-1.24); GLUCOSE 192 mg/dl (70-220); MAGNESIUM 2.6 mg/dl (1.7-2.5); PHOSPHORUS 2.8 mg/dl (2.5-4.9); POTASSIUM 3.8 mmol/L (3.5-5.1); SODIUM 136 mmol/L (135-144); TOTAL PROTEIN 6.1 g/dl (6.1-8.1)
[2017-12-03 07:38] LABS: ADD MAN DIFF? NO
[2017-12-03 07:40] LABS: BASOPHIL # 0.1 10^3/ul (0.0-0.1); BASOPHILS % 0.8 % (0.0-2.0); EOSINOPHILS # 0.3 10^3/ul (0.0-0.5); HEMATOCRIT 28.1 % (42.0-52.0); HEMOGLOBIN 9.3 g/dl (14.0-18.0); LYMPHOCYTES # 0.7 10^3/ul (0.8-2.9); LYMPHOCYTES % 9.3 % (15.0-51.0); MEAN CORPUSCULAR HEMOGLOBIN 30.9 pg (29.0-33.0); MEAN CORPUSCULAR HGB CONC 33.1 g/dl (32.0-37.0); MEAN CORPUSCULAR VOLUME 93.4 fl (82.0-101.0); MEAN PLATELET VOLUME 10.7 fl (7.4-10.4); MONOCYTE # 0.5 10^3/ul (0.3-0.9); MONOCYTES % 6.9 % (0.0-11.0); NEUTROPHIL # 6.1 10^3/ul (1.6-7.5); NEUTROPHILS % 78.5 % (39.0-77.0); PLATELET COUNT 104 10^3/UL (140-415); RED BLOOD COUNT 3.01 10^6/ul (4.70-6.10); RED CELL DISTRIBUTION WIDTH 16.3 % (11.5-14.5)
[2017-12-03 07:40] LABS: WHITE BLOOD COUNT 7.7 10^3/ul (4.8-10.8)
[2017-12-03] MEDS: LEVOTHYROXINE 75 MCG TAB PO (08:15)
[2017-12-03] MEDS: FOLIC ACID 1 MG TAB PO (08:58)
[2017-12-03] MEDS: MULTIVIT/CA CARB/B CMPLX/FA TAB PO (08:58)
[2017-12-03] MEDS: SEVELAMER CARBONATE 0.8 GM PKT PO ×3 (08:59→23:20)
[2017-12-03] MEDS: ISOSORBIDE DINITRATE 10 MG TAB PO ×3 (08:59→21:00)
[2017-12-03] MEDS: BALSAM PERU/CASTOR OIL 60 GM TUBE TOP ×2 (09:00→23:21)
[2017-12-03] MEDS: HEPARIN 5,000 UNIT/0.5 ML VIAL SC ×2 (09:00→23:23)
[2017-12-03] MEDS: BETAMETHASONE/CLOTRIMAZOLE 15 GM CR TOP ×2 (09:00→23:21)
[2017-12-03] MEDS: COLLAGENASE 30 GM TUBE TOP (09:01)
[2017-12-03] MEDS: PROPOFOL 100 ML IV ×2 (09:58→16:05)
[2017-12-03] MEDS: CEFEPIME 1GM/50 ML (PMX) 50 ML IVPB (11:18)
[2017-12-03] MEDS: hydrALAzine 20 MG INJ IV (16:05)
[2017-12-03] MEDS: EPOETIN 10000 UNITS/1 ML INJ (ESRD) SC (18:01)
[2017-12-03] MEDS: ALBUMIN HUMAN 25% 50 ML IV ×3 (21:30→22:23)
[2017-12-03] MEDS ORDERED: FENTAnyl (DRIP) 1000 mcg/100mL 100 ML IV (23:48)
[2017-12-04 05:10] LABS: ADD MAN DIFF? NO
[2017-12-04 05:14] LABS: HEMOGLOBIN 9.1 g/dl (14.0-18.0); RED BLOOD COUNT 2.99 10^6/ul (4.70-6.10)
[2017-12-04 05:14] LABS: WHITE BLOOD COUNT 12.8 10^3/ul (4.8-10.8)
[2017-12-04 05:15] LABS: ABNORMAL IP MESSAGE 1; BASOPHIL # 0.1 10^3/ul (0.0-0.1); BASOPHILS % 0.4 % (0.0-2.0); EOSINOPHILS # 0.2 10^3/ul (0.0-0.5); EOSINOPHILS % 1.3 % (0.0-7.0); HEMATOCRIT 27.6 % (42.0-52.0); LYMPHOCYTES # 0.9 10^3/ul (0.8-2.9); LYMPHOCYTES % 6.6 % (15.0-51.0); MEAN CORPUSCULAR HEMOGLOBIN 30.4 pg (29.0-33.0); MEAN CORPUSCULAR VOLUME 92.3 fl (82.0-101.0); MEAN PLATELET VOLUME 10.6 fl (7.4-10.4); MONOCYTE # 0.8 10^3/ul (0.3-0.9); MONOCYTES % 6.2 % (0.0-11.0); NEUTROPHIL # 10.8 10^3/ul (1.6-7.5); NEUTROPHILS % 84.6 % (39.0-77.0); PLATELET COUNT 95 10^3/UL (140-415); POSITIVE DIFF @See below; RED CELL DISTRIBUTION WIDTH 16.5 % (11.5-14.5)
[2017-12-04 05:50] LABS: ANION GAP 17 (8-16); BLOOD UREA NITROGEN 23 mg/dl (7-20); CALCIUM 8.7 mg/dl (8.4-10.2); CARBON DIOXIDE 29 mmol/L (21-31); CHLORIDE 98 mmol/L (97-110); CREATININE 2.72 mg/dl (0.61-1.24); GLUCOSE 177 mg/dl (70-220); POTASSIUM 3.5 mmol/L (3.5-5.1); SODIUM 140 mmol/L (135-144)
[2017-12-04 05:56] LABS: TROPONIN-I 0.054 ng/ml (0.00-0.12)
[2017-12-04] MEDS: LEVOTHYROXINE 75 MCG TAB PO (07:52)
[2017-12-04] MEDS: MULTIVIT/CA CARB/B CMPLX/FA TAB PO (08:38)
[2017-12-04] MEDS: SEVELAMER CARBONATE 0.8 GM PKT PO ×3 (08:38→20:38)
[2017-12-04] MEDS: ISOSORBIDE DINITRATE 10 MG TAB PO ×3 (08:39→20:38)
[2017-12-04] MEDS: FOLIC ACID 1 MG TAB PO (08:39)
[2017-12-04] MEDS: BALSAM PERU/CASTOR OIL 60 GM TUBE TOP ×2 (08:39→20:39)
[2017-12-04] MEDS: COLLAGENASE 30 GM TUBE TOP (08:40)
[2017-12-04] MEDS: BETAMETHASONE/CLOTRIMAZOLE 15 GM CR TOP ×2 (08:40→20:39)
[2017-12-04] MEDS: HEPARIN 5,000 UNIT/0.5 ML VIAL SC ×2 (08:41→20:48)
[2017-12-04 10:04] LABS: AADO2 Arterial 72.8 mmHg (7.0-24.0); Allen Test ACCEPTAB; Arterial Base Excess 3.4 mmol/L (-3.0-3); Arterial COHb 0.2 % (0.0-3.0); Arterial Fraction of Oxyhgb 96.6 % (93.0-99.0); Arterial HCO3 27.8 mmol/L (22.0-26.0); Arterial MetHb 0.2 % (0.0-1.5); Arterial Total Hemglobin 10.4 g/dl (12.0-18.0); Arterial pCO2 41.8 mmhg (35-45); MODE VENT-AC; Site Right Radial
[2017-12-04] MEDS: PROPOFOL 100 ML IV ×3 (10:09→23:22)
[2017-12-04] MEDS: CEFEPIME 1GM/50 ML (PMX) 50 ML IVPB (11:09)
[2017-12-04] MEDS: FUROSEMIDE 20 MG INJ IV (14:24)
[2017-12-05 05:17] LABS: AADO2 Arterial 63.7 mmHg (7.0-24.0); Allen Test ACCEPTAB; Arterial Base Excess 2.1 mmol/L (-3.0-3); Arterial Blood Gas Oxygen Sat 97.7 mmHG (95.0-98.0); Arterial COHb 0.9 % (0.0-3.0); Arterial Fraction of Oxyhgb 96.5 % (93.0-99.0); Arterial HCO3 27.4 mmol/L (22.0-26.0); Arterial MetHb 0.3 % (0.0-1.5); Arterial Total Hemglobin 13.3 g/dl (12.0-18.0); Arterial pCO2 45.3 mmhg (35-45); MODE VENT - AC; Site Right Radial
[2017-12-05] MEDS: PROPOFOL 100 ML IV ×3 (05:25→21:37)
[2017-12-05 06:05] LABS: ADD MAN DIFF? NO
[2017-12-05] MEDS: LEVOTHYROXINE 75 MCG TAB PO (06:08)
[2017-12-05 06:22] LABS: ABNORMAL IP MESSAGE 1; BASOPHIL # 0.1 10^3/ul (0.0-0.1); BASOPHILS % 0.5 % (0.0-2.0); EOSINOPHILS # 0.3 10^3/ul (0.0-0.5); EOSINOPHILS % 1.9 % (0.0-7.0); HEMATOCRIT 27.5 % (42.0-52.0); HEMOGLOBIN 9.1 g/dl (14.0-18.0); LYMPHOCYTES # 1.3 10^3/ul (0.8-2.9); LYMPHOCYTES % 9.1 % (15.0-51.0); MEAN CORPUSCULAR HGB CONC 33.1 g/dl (32.0-37.0); MEAN CORPUSCULAR VOLUME 93.5 fl (82.0-101.0); MEAN PLATELET VOLUME 11.3 fl (7.4-10.4); MONOCYTE # 0.9 10^3/ul (0.3-0.9); MONOCYTES % 6.2 % (0.0-11.0); NEUTROPHIL # 11.8 10^3/ul (1.6-7.5); NEUTROPHILS % 81.7 % (39.0-77.0); PLATELET COUNT 94 10^3/UL (140-415); POSITIVE DIFF @See below; RED BLOOD COUNT 2.94 10^6/ul (4.70-6.10); RED CELL DISTRIBUTION WIDTH 17.5 % (11.5-14.5)
[2017-12-05 06:22] LABS: WHITE BLOOD COUNT 14.5 10^3/ul (4.8-10.8)
[2017-12-05 07:03] LABS: LACTIC ACID 1.2 mmol/L (0.5-2.0)
[2017-12-05 07:09] LABS: ANION GAP 16 (8-16); BLOOD UREA NITROGEN 34 mg/dl (7-20); CALCIUM 8.5 mg/dl (8.4-10.2); CARBON DIOXIDE 26 mmol/L (21-31); CHLORIDE 99 mmol/L (97-110); CREATININE 3.29 mg/dl (0.61-1.24); GLUCOSE 155 mg/dl (70-220); POTASSIUM 3.6 mmol/L (3.5-5.1); SODIUM 137 mmol/L (135-144)
[2017-12-05] MEDS: SEVELAMER CARBONATE 0.8 GM PKT PO ×3 (08:14→21:43)
[2017-12-05] MEDS: FOLIC ACID 1 MG TAB PO (08:15)
[2017-12-05] MEDS: ISOSORBIDE DINITRATE 10 MG TAB PO (08:15)
[2017-12-05] MEDS: FUROSEMIDE 20 MG INJ IV (08:15)
[2017-12-05] MEDS: BALSAM PERU/CASTOR OIL 60 GM TUBE TOP ×2 (08:16→21:44)
[2017-12-05] MEDS: COLLAGENASE 30 GM TUBE TOP (08:16)
[2017-12-05] MEDS: BETAMETHASONE/CLOTRIMAZOLE 15 GM CR TOP ×2 (08:17→21:44)
[2017-12-05] MEDS: HEPARIN 5,000 UNIT/0.5 ML VIAL SC ×2 (08:20→21:39)
[2017-12-05] MEDS: MULTIVIT/CA CARB/B CMPLX/FA TAB PO (08:20)
[2017-12-05] MEDS: IODIXANOL LOCM 100 ML BTL (10:37)
[2017-12-05] MEDS: SOD CHLORIDE 0.9% 100 ML (10:38)
[2017-12-05] MEDS: ALBUMIN HUMAN 25% 50 ML IV ×2 (12:07→13:04)
[2017-12-05] MEDS: CEFEPIME 1GM/50 ML (PMX) 50 ML IVPB (12:52)
[2017-12-05] MEDS: LANSOPRAZOLE 30 MG CAP GTB (15:31)
[2017-12-06] MEDS: PROPOFOL 100 ML IV ×4 (04:52→23:08)
[2017-12-06 05:41] LABS: ADD MAN DIFF? NO
[2017-12-06 05:50] LABS: BASOPHIL # 0.1 10^3/ul (0.0-0.1); BASOPHILS % 0.3 % (0.0-2.0); EOSINOPHILS # 0.2 10^3/ul (0.0-0.5); EOSINOPHILS % 1.3 % (0.0-7.0); HEMATOCRIT 27.6 % (42.0-52.0); LYMPHOCYTES % 5.7 % (15.0-51.0); MEAN CORPUSCULAR HEMOGLOBIN 30.5 pg (29.0-33.0); MEAN CORPUSCULAR HGB CONC 32.6 g/dl (32.0-37.0); MEAN CORPUSCULAR VOLUME 93.6 fl (82.0-101.0); MEAN PLATELET VOLUME 11.1 fl (7.4-10.4); MONOCYTES % 5.9 % (0.0-11.0); NEUTROPHIL # 14.8 10^3/ul (1.6-7.5); PLATELET COUNT 113 10^3/UL (140-415); RED BLOOD COUNT 2.95 10^6/ul (4.70-6.10); RED CELL DISTRIBUTION WIDTH 18.1 % (11.5-14.5)
[2017-12-06 05:50] LABS: WHITE BLOOD COUNT 17.3 10^3/ul (4.8-10.8)
[2017-12-06 06:05] LABS: MAGNESIUM 2.4 mg/dl (1.7-2.5)
[2017-12-06 06:05] LABS: PHOSPHORUS 2.4 mg/dl (2.5-4.9)
[2017-12-06 06:19] LABS: ALANINE AMINOTRANSFERASE 18 IU/L (13-69); ALBUMIN 3.2 g/dl (3.3-4.9); ALBUMIN/GLOBULIN RATIO 0.88; ALKALINE PHOSPHATASE 194 IU/L (42-121); ANION GAP 15 (8-16); ASPARTATE AMINO TRANSFERASE 14 IU/L (15-46); BLOOD UREA NITROGEN 25 mg/dl (7-20); CALCIUM 9.1 mg/dl (8.4-10.2); CARBON DIOXIDE 27 mmol/L (21-31); CHLORIDE 100 mmol/L (97-110); CREATININE 2.35 mg/dl (0.61-1.24); GLUCOSE 169 mg/dl (70-220); POTASSIUM 3.4 mmol/L (3.5-5.1); SODIUM 139 mmol/L (135-144); TOTAL PROTEIN 6.8 g/dl (6.1-8.1)
[2017-12-06] MEDS: LANSOPRAZOLE 30 MG CAP GTB (06:56)
[2017-12-06] MEDS: LEVOTHYROXINE 75 MCG TAB PO (06:56)
[2017-12-06] MEDS: SEVELAMER CARBONATE 0.8 GM PKT PO ×3 (08:13→21:05)
[2017-12-06] MEDS: FUROSEMIDE 20 MG INJ IV (08:14)
[2017-12-06] MEDS: FOLIC ACID 1 MG TAB PO (08:14)
[2017-12-06] MEDS: MULTIVIT/CA CARB/B CMPLX/FA TAB PO (08:14)
[2017-12-06] MEDS: COLLAGENASE 30 GM TUBE TOP (08:14)
[2017-12-06] MEDS: BALSAM PERU/CASTOR OIL 60 GM TUBE TOP ×2 (08:14→21:05)
[2017-12-06] MEDS: BETAMETHASONE/CLOTRIMAZOLE 15 GM CR TOP ×2 (08:15→21:05)
[2017-12-06] MEDS: HEPARIN 5,000 UNIT/0.5 ML VIAL SC ×2 (08:27→21:00)
[2017-12-06] MEDS: CEFEPIME 1GM/50 ML (PMX) 50 ML IVPB (10:46)
[2017-12-06] MEDS ORDERED: HEPARIN 1000 UNITS/ML 10 ML INJ CATHETER (14:30)
[2017-12-06] MEDS ORDERED: SODIUM CHLORIDE 0.9% 1L BAG IV (14:30)
[2017-12-06] MEDS: POTASSIUM CHLORIDE 100 ML IVPB (15:19)
[2017-12-06] MEDS: EPOETIN 10000 UNITS/1 ML INJ (ESRD) SC (16:44)
[2017-12-07] MEDS: ACETAMINOPHEN 325 MG TAB PO ×2 (00:48→14:00)
[2017-12-07 01:55] LABS: LACTIC ACID 1.1 mmol/L (0.5-2.0)
[2017-12-07 03:45] LABS: ADD MAN DIFF? NO
[2017-12-07 03:51] LABS: BASOPHIL # 0.1 10^3/ul (0.0-0.1); BASOPHILS % 0.4 % (0.0-2.0); EOSINOPHILS # 0.2 10^3/ul (0.0-0.5); EOSINOPHILS % 1.1 % (0.0-7.0); HEMATOCRIT 26.9 % (42.0-52.0); HEMOGLOBIN 8.8 g/dl (14.0-18.0); LYMPHOCYTES # 1.4 10^3/ul (0.8-2.9); LYMPHOCYTES % 8.7 % (15.0-51.0); MEAN CORPUSCULAR HGB CONC 32.7 g/dl (32.0-37.0); MEAN CORPUSCULAR VOLUME 94.7 fl (82.0-101.0); MEAN PLATELET VOLUME 10.7 fl (7.4-10.4); MONOCYTE # 1.3 10^3/ul (0.3-0.9); NEUTROPHILS % 80.8 % (39.0-77.0); PLATELET COUNT 119 10^3/UL (140-415); RED BLOOD COUNT 2.84 10^6/ul (4.70-6.10); RED CELL DISTRIBUTION WIDTH 18.1 % (11.5-14.5)
[2017-12-07 03:51] LABS: WHITE BLOOD COUNT 16.1 10^3/ul (4.8-10.8)
[2017-12-07 04:18] LABS: ANION GAP 17 (8-16); BLOOD UREA NITROGEN 36 mg/dl (7-20); CARBON DIOXIDE 26 mmol/L (21-31); CHLORIDE 98 mmol/L (97-110); CREATININE 3.06 mg/dl (0.61-1.24); GLUCOSE 148 mg/dl (70-220); MAGNESIUM 2.5 mg/dl (1.7-2.5); POTASSIUM 3.9 mmol/L (3.5-5.1); SODIUM 137 mmol/L (135-144)
[2017-12-07 04:18] LABS: LACTIC ACID 1.1 mmol/L (0.5-2.0); PHOSPHORUS 2.5 mg/dl (2.5-4.9)
[2017-12-07] MEDS: PROPOFOL 100 ML IV ×3 (05:27→23:06)
[2017-12-07] MEDS: LEVOTHYROXINE 75 MCG TAB PO (06:51)
[2017-12-07] MEDS: LANSOPRAZOLE 30 MG CAP GTB (06:51)
[2017-12-07] MEDS: SEVELAMER CARBONATE 0.8 GM PKT PO ×3 (08:23→21:00)
[2017-12-07] MEDS: MULTIVIT/CA CARB/B CMPLX/FA TAB PO (08:23)
[2017-12-07] MEDS: COLLAGENASE 30 GM TUBE TOP (08:24)
[2017-12-07] MEDS: BALSAM PERU/CASTOR OIL 60 GM TUBE TOP ×2 (08:24→21:00)
[2017-12-07] MEDS: BETAMETHASONE/CLOTRIMAZOLE 15 GM CR TOP ×2 (08:24→21:00)
[2017-12-07] MEDS: FUROSEMIDE 20 MG INJ IV (08:24)
[2017-12-07] MEDS: FOLIC ACID 1 MG TAB PO (08:24)
[2017-12-07] MEDS: HEPARIN 5,000 UNIT/0.5 ML VIAL SC ×2 (08:25→19:34)
[2017-12-07] MEDS: CEFEPIME 1GM/50 ML (PMX) 50 ML IVPB (11:26)
[2017-12-08 06:01] LABS: ADD MAN DIFF? NO
[2017-12-08 06:13] LABS: BASOPHIL # 0.1 10^3/ul (0.0-0.1); BASOPHILS % 0.5 % (0.0-2.0); EOSINOPHILS # 0.2 10^3/ul (0.0-0.5); EOSINOPHILS % 1.2 % (0.0-7.0); HEMATOCRIT 26.7 % (42.0-52.0); HEMOGLOBIN 8.8 g/dl (14.0-18.0); LYMPHOCYTES # 1.2 10^3/ul (0.8-2.9); MEAN CORPUSCULAR HEMOGLOBIN 30.9 pg (29.0-33.0); MEAN CORPUSCULAR VOLUME 93.7 fl (82.0-101.0); MEAN PLATELET VOLUME 10.9 fl (7.4-10.4); MONOCYTES % 7.4 % (0.0-11.0); NEUTROPHIL # 10.6 10^3/ul (1.6-7.5); NEUTROPHILS % 81.2 % (39.0-77.0); PLATELET COUNT 114 10^3/UL (140-415); RED BLOOD COUNT 2.85 10^6/ul (4.70-6.10); RED CELL DISTRIBUTION WIDTH 17.9 % (11.5-14.5)
[2017-12-08 06:37] LABS: ANION GAP 18 (8-16); BLOOD UREA NITROGEN 31 mg/dl (7-20); CALCIUM 8.6 mg/dl (8.4-10.2); CARBON DIOXIDE 27 mmol/L (21-31); CHLORIDE 98 mmol/L (97-110); CREATININE 2.35 mg/dl (0.61-1.24); GLUCOSE 176 mg/dl (70-220); POTASSIUM 3.8 mmol/L (3.5-5.1); SODIUM 139 mmol/L (135-144)
[2017-12-08 06:46] LABS: PHOSPHORUS 2.6 mg/dl (2.5-4.9)
[2017-12-08 06:46] LABS: MAGNESIUM 2.4 mg/dl (1.7-2.5)
[2017-12-08] MEDS: LEVOTHYROXINE 75 MCG TAB PO ×2 (07:00→08:47)
[2017-12-08] MEDS: LANSOPRAZOLE 30 MG CAP GTB (07:00)
[2017-12-08] MEDS: SEVELAMER CARBONATE 0.8 GM PKT PO ×3 (08:48→20:30)
[2017-12-08] MEDS: MULTIVIT/CA CARB/B CMPLX/FA TAB PO (08:48)
[2017-12-08] MEDS: FUROSEMIDE 20 MG INJ IV (08:48)
[2017-12-08] MEDS: FOLIC ACID 1 MG TAB PO (08:48)
[2017-12-08] MEDS: HEPARIN 5,000 UNIT/0.5 ML VIAL SC ×2 (08:49→20:35)
[2017-12-08] MEDS: COLLAGENASE 30 GM TUBE TOP (08:50)
[2017-12-08] MEDS: BETAMETHASONE/CLOTRIMAZOLE 15 GM CR TOP ×2 (08:50→20:51)
[2017-12-08] MEDS: BALSAM PERU/CASTOR OIL 60 GM TUBE TOP ×2 (08:50→20:30)
[2017-12-08] MEDS: CEFEPIME 1GM/50 ML (PMX) 50 ML IVPB (11:07)
[2017-12-08] MEDS: PROPOFOL 100 ML IV ×3 (11:12→22:29)
[2017-12-08] MEDS ORDERED: ALBUMIN HUMAN 25% 50 ML IV (14:30)
[2017-12-08] MEDS: EPOETIN 10000 UNITS/1 ML INJ (ESRD) SC (16:14)
[2017-12-08 19:15] LABS: PLATELET COUNT 120 10^3/UL (140-415)
[2017-12-08 19:21] LABS: LACTATE DEHYDROGENASE 266 IU/L (313-618)
[2017-12-08 19:23] LABS: INR 1.26; PARTIAL THROMBOPLASTIN TIME 27.5 Sec (25.0-35.0); PT RATIO 1.3
[2017-12-08 19:24] LABS: THROMBIN TIME 19.9 SEC (13.8-19.1)
[2017-12-08 19:42] LABS: D-DIMER 6843.99 ng/ml (<460)
[2017-12-08 20:22] LABS: FIBRIN SPLIT PRODUCT >10 and <40 ug/ml (<10)
[2017-12-08] MEDS: ACETAMINOPHEN 325 MG TAB PO (20:56)
[2017-12-09] MEDS: ACETAMINOPHEN 325 MG TAB PO (02:39)
[2017-12-09 05:39] LABS: ADD MAN DIFF? NO
[2017-12-09 05:48] LABS: BASOPHIL # 0.1 10^3/ul (0.0-0.1); BASOPHILS % 0.7 % (0.0-2.0); EOSINOPHILS # 0.2 10^3/ul (0.0-0.5); EOSINOPHILS % 1.8 % (0.0-7.0); HEMATOCRIT 26.6 % (42.0-52.0); HEMOGLOBIN 8.8 g/dl (14.0-18.0); LYMPHOCYTES # 1.2 10^3/ul (0.8-2.9); LYMPHOCYTES % 10.3 % (15.0-51.0); MEAN CORPUSCULAR HEMOGLOBIN 30.9 pg (29.0-33.0); MEAN CORPUSCULAR HGB CONC 33.1 g/dl (32.0-37.0); MEAN CORPUSCULAR VOLUME 93.3 fl (82.0-101.0); MEAN PLATELET VOLUME 11.2 fl (7.4-10.4); MONOCYTE # 1.1 10^3/ul (0.3-0.9); MONOCYTES % 9.5 % (0.0-11.0); NEUTROPHIL # 8.8 10^3/ul (1.6-7.5); NUCLEATED RED BLOOD CELLS% 0.2 /100WBC (0.0-0.0); PLATELET COUNT 119 10^3/UL (140-415); RED BLOOD COUNT 2.85 10^6/ul (4.70-6.10); RED CELL DISTRIBUTION WIDTH 17.6 % (11.5-14.5)
[2017-12-09 05:48] LABS: WHITE BLOOD COUNT 11.5 10^3/ul (4.8-10.8)
[2017-12-09 06:08] LABS: PHOSPHORUS 3.2 mg/dl (2.5-4.9)
[2017-12-09 06:08] LABS: MAGNESIUM 2.5 mg/dl (1.7-2.5)
[2017-12-09 06:18] LABS: ANION GAP 17 (8-16); BLOOD UREA NITROGEN 46 mg/dl (7-20); CALCIUM 8.8 mg/dl (8.4-10.2); CARBON DIOXIDE 27 mmol/L (21-31); CHLORIDE 96 mmol/L (97-110); GLUCOSE 152 mg/dl (70-220); POTASSIUM 3.8 mmol/L (3.5-5.1); SODIUM 136 mmol/L (135-144)
[2017-12-09] MEDS: LANSOPRAZOLE 30 MG CAP GTB (06:50)
[2017-12-09] MEDS: LEVOTHYROXINE 75 MCG TAB PO (06:50)
[2017-12-09] MEDS: PROPOFOL 100 ML IV ×3 (07:24→21:06)
[2017-12-09] MEDS: MIDODRINE 5 MG TAB NGT ×3 (07:58→16:49)
[2017-12-09] MEDS: COLLAGENASE 30 GM TUBE TOP (08:15)
[2017-12-09] MEDS: BALSAM PERU/CASTOR OIL 60 GM TUBE TOP ×2 (08:15→21:06)
[2017-12-09] MEDS: FUROSEMIDE 20 MG INJ IV (08:16)
[2017-12-09] MEDS: BETAMETHASONE/CLOTRIMAZOLE 15 GM CR TOP ×2 (08:16→21:07)
[2017-12-09] MEDS: FOLIC ACID 1 MG TAB PO (08:16)
[2017-12-09] MEDS: SEVELAMER CARBONATE 0.8 GM PKT PO ×3 (08:16→21:06)
[2017-12-09] MEDS: MULTIVIT/CA CARB/B CMPLX/FA TAB PO (08:16)
[2017-12-09] MEDS: HEPARIN 5,000 UNIT/0.5 ML VIAL SC ×2 (08:36→21:08)
[2017-12-09] MEDS: ALBUMIN HUMAN 25% 50 ML IV ×2 (09:21→10:26)
[2017-12-09] MEDS: CEFEPIME 1GM/50 ML (PMX) 50 ML IVPB ×2 (12:16→20:07)
[2017-12-10] MEDS: PROPOFOL 100 ML IV ×2 (04:07→20:35)
[2017-12-10 05:44] LABS: ADD MAN DIFF? NO
[2017-12-10 05:55] LABS: BASOPHIL # 0.1 10^3/ul (0.0-0.1); EOSINOPHILS # 0.3 10^3/ul (0.0-0.5); EOSINOPHILS % 3.2 % (0.0-7.0); HEMATOCRIT 27.6 % (42.0-52.0); LYMPHOCYTES # 1.1 10^3/ul (0.8-2.9); LYMPHOCYTES % 10.8 % (15.0-51.0); MEAN CORPUSCULAR HEMOGLOBIN 30.2 pg (29.0-33.0); MEAN CORPUSCULAR HGB CONC 32.6 g/dl (32.0-37.0); MEAN CORPUSCULAR VOLUME 92.6 fl (82.0-101.0); MEAN PLATELET VOLUME 11.1 fl (7.4-10.4); MONOCYTES % 9.7 % (0.0-11.0); NEUTROPHIL # 7.5 10^3/ul (1.6-7.5); NEUTROPHILS % 74.5 % (39.0-77.0); PLATELET COUNT 135 10^3/UL (140-415); RED BLOOD COUNT 2.98 10^6/ul (4.70-6.10); RED CELL DISTRIBUTION WIDTH 17.6 % (11.5-14.5)
[2017-12-10 06:08] LABS: ANION GAP 18 (8-16); BLOOD UREA NITROGEN 35 mg/dl (7-20); CALCIUM 9.1 mg/dl (8.4-10.2); CARBON DIOXIDE 28 mmol/L (21-31); CHLORIDE 97 mmol/L (97-110); CREATININE 2.58 mg/dl (0.61-1.24); GLUCOSE 187 mg/dl (70-220); MAGNESIUM 2.5 mg/dl (1.7-2.5); PHOSPHORUS 2.9 mg/dl (2.5-4.9); POTASSIUM 3.6 mmol/L (3.5-5.1); SODIUM 139 mmol/L (135-144)
[2017-12-10] MEDS: LEVOTHYROXINE 75 MCG TAB PO (06:34)
[2017-12-10] MEDS: LANSOPRAZOLE 30 MG CAP GTB (06:34)
[2017-12-10] MEDS: MIDODRINE 5 MG TAB NGT ×2 (08:05→17:00)
[2017-12-10] MEDS: FUROSEMIDE 20 MG INJ IV (09:00)
[2017-12-10] MEDS: BALSAM PERU/CASTOR OIL 60 GM TUBE TOP ×2 (09:31→20:34)
[2017-12-10] MEDS: BETAMETHASONE/CLOTRIMAZOLE 15 GM CR TOP ×2 (09:31→20:34)
[2017-12-10] MEDS: COLLAGENASE 30 GM TUBE TOP (09:31)
[2017-12-10] MEDS: MULTIVIT/CA CARB/B CMPLX/FA TAB PO (09:31)
[2017-12-10] MEDS: SEVELAMER CARBONATE 0.8 GM PKT PO ×3 (09:31→20:35)
[2017-12-10] MEDS: FOLIC ACID 1 MG TAB PO (09:31)
[2017-12-10] MEDS: HEPARIN 5,000 UNIT/0.5 ML VIAL SC (09:35)
[2017-12-10 10:52] LABS: AADO2 Arterial 107.8 mmHg (7.0-24.0); Allen Test ACCEPTAB; Arterial Base Excess 4.3 mmol/L (-3.0-3); Arterial Blood Gas Oxygen Sat 85.8 mmHG (95.0-98.0); Arterial COHb 0.2 % (0.0-3.0); Arterial Fraction of Oxyhgb 85.5 % (93.0-99.0); Arterial HCO3 29.6 mmol/L (22.0-26.0); Arterial MetHb 0.2 % (0.0-1.5); Arterial Total Hemglobin 10.1 g/dl (12.0-18.0); Arterial pCO2 47.6 mmhg (35-45); MODE VENT - CPAP; Site Left Radial
[2017-12-10] MEDS: CEFEPIME 1GM/50 ML (PMX) 50 ML IVPB (11:20)
[2017-12-10] MEDS: Insulin NOVOLOG SS MILD Algorithm (NPO/TPN/ENTERAL FEEDS) SC ×3 (14:24→20:35)
[2017-12-10] MEDS: EPOETIN 10000 UNITS/1 ML INJ (ESRD) SC (17:30)
[2017-12-10 21:54] LABS: AADO2 Arterial 382.7 mmHg (7.0-24.0); Arterial Base Excess 2.6 mmol/L (-3.0-3); Arterial Blood Gas Oxygen Sat 99.6 mmHG (95.0-98.0); Arterial COHb 0.3 % (0.0-3.0); Arterial HCO3 26.7 mmol/L (22.0-26.0); Arterial MetHb 0.3 % (0.0-1.5); Arterial Total Hemglobin 10.4 g/dl (12.0-18.0); Arterial pCO2 39.4 mmhg (35-45); Blood Gas IEPAP 16/8; MODE MASK - BIPAP; Site LB
[2017-12-10] MEDS: ALBUMIN HUMAN 25% 50 ML IV (23:08)
[2017-12-11] MEDS: ALBUMIN HUMAN 25% 50 ML IV (00:07)
[2017-12-11] MEDS: Insulin NOVOLOG SS MILD Algorithm (NPO/TPN/ENTERAL FEEDS) SC ×6 (01:59→20:49)
[2017-12-11] MEDS ORDERED: ACCU-CHEK XX (02:00)
[2017-12-11 05:08] LABS: ADD MAN DIFF? NO
[2017-12-11 05:09] LABS: WHITE BLOOD COUNT 19.6 10^3/ul (4.8-10.8)
[2017-12-11 05:09] LABS: BASOPHIL # 0.1 10^3/ul (0.0-0.1); BASOPHILS % 0.6 % (0.0-2.0); EOSINOPHILS # 0.2 10^3/ul (0.0-0.5); HEMATOCRIT 26.3 % (42.0-52.0); HEMOGLOBIN 8.7 g/dl (14.0-18.0); LYMPHOCYTES # 1.1 10^3/ul (0.8-2.9); LYMPHOCYTES % 5.7 % (15.0-51.0); MEAN CORPUSCULAR HEMOGLOBIN 30.1 pg (29.0-33.0); MEAN CORPUSCULAR HGB CONC 33.1 g/dl (32.0-37.0); MEAN PLATELET VOLUME 11.6 fl (7.4-10.4); MONOCYTE # 0.9 10^3/ul (0.3-0.9); MONOCYTES % 4.6 % (0.0-11.0); NEUTROPHIL # 17.2 10^3/ul (1.6-7.5); NEUTROPHILS % 87.7 % (39.0-77.0); PLATELET COUNT 148 10^3/UL (140-415); RED BLOOD COUNT 2.89 10^6/ul (4.70-6.10); RED CELL DISTRIBUTION WIDTH 17.4 % (11.5-14.5)
[2017-12-11 05:41] LABS: ANION GAP 17 (8-16); BLOOD UREA NITROGEN 22 mg/dl (7-20); CALCIUM 9.9 mg/dl (8.4-10.2); CARBON DIOXIDE 29 mmol/L (21-31); CHLORIDE 99 mmol/L (97-110); CREATININE 2.02 mg/dl (0.61-1.24); GLUCOSE 73 mg/dl (70-220); MAGNESIUM 2.4 mg/dl (1.7-2.5); PHOSPHORUS 2.5 mg/dl (2.5-4.9); POTASSIUM 3.6 mmol/L (3.5-5.1); SODIUM 141 mmol/L (135-144)
[2017-12-11] MEDS: LEVOTHYROXINE 75 MCG TAB PO (07:00)
[2017-12-11] MEDS: LANSOPRAZOLE 30 MG CAP GTB (07:00)
[2017-12-11] MEDS: PROPOFOL 100 ML IV ×2 (07:47→20:46)
[2017-12-11] MEDS: MIDODRINE 5 MG TAB NGT ×2 (09:00→17:00)
[2017-12-11] MEDS: FUROSEMIDE 20 MG INJ IV (09:00)
[2017-12-11] MEDS: MULTIVIT/CA CARB/B CMPLX/FA TAB PO (09:00)
[2017-12-11] MEDS: FOLIC ACID 1 MG TAB PO (09:00)
[2017-12-11] MEDS: SEVELAMER CARBONATE 0.8 GM PKT PO ×3 (09:00→20:50)
[2017-12-11] MEDS: BETAMETHASONE/CLOTRIMAZOLE 15 GM CR TOP ×2 (09:29→20:49)
[2017-12-11] MEDS: COLLAGENASE 30 GM TUBE TOP (09:30)
[2017-12-11] MEDS: BALSAM PERU/CASTOR OIL 60 GM TUBE TOP ×2 (09:30→20:49)
[2017-12-11] MEDS: CEFEPIME 1GM/50 ML (PMX) 50 ML IVPB (11:01)
[2017-12-11] MEDS: DEXTROSE 50% 50 ML SYRINGE IV (12:53)
[2017-12-11] MEDS: DEXTROSE 5%-0.45% NACL 1,000 ML IV (17:03)
[2017-12-11] MEDS ORDERED: VANCOMYCIN IV PER PHARMACY XX (17:30)
[2017-12-11] MEDS ORDERED: FLUCONAZOLE 200 MG/NS (PMX) 100 ML IVPB (17:30)
[2017-12-11] MEDS ORDERED: FLUCONAZOLE 100 MG/NS (PMX) 50 ML IVPB (19:00)
[2017-12-11] MEDS: FLUCONAZOLE 100 MG/NS (PMX) 50 ML IVPB (19:50)
[2017-12-11] MEDS: HEPARIN 5,000 UNIT/0.5 ML VIAL SC (21:00)
[2017-12-11] MEDS: VANCOMYCIN 1.25 GM in SOD CHLORIDE 0.9% 250 ML IVPB (21:21)
[2017-12-11 23:31] LABS: HEPARIN INDUCED PLATELET AB NEGATIVE (NEGATIVE)
[2017-12-12] MEDS: Insulin NOVOLOG SS MILD Algorithm (NPO/TPN/ENTERAL FEEDS) SC ×6 (01:00→21:00)
[2017-12-12 05:17] LABS: ADD MAN DIFF? NO
[2017-12-12 05:23] LABS: WHITE BLOOD COUNT 13.6 10^3/ul (4.8-10.8)
[2017-12-12 05:23] LABS: BASOPHIL # 0.1 10^3/ul (0.0-0.1); BASOPHILS % 0.8 % (0.0-2.0); EOSINOPHILS # 0.3 10^3/ul (0.0-0.5); EOSINOPHILS % 2.2 % (0.0-7.0); HEMATOCRIT 26.3 % (42.0-52.0); HEMOGLOBIN 8.5 g/dl (14.0-18.0); LYMPHOCYTES # 1.1 10^3/ul (0.8-2.9); LYMPHOCYTES % 8.1 % (15.0-51.0); MEAN CORPUSCULAR HEMOGLOBIN 30.2 pg (29.0-33.0); MEAN CORPUSCULAR HGB CONC 32.3 g/dl (32.0-37.0); MEAN CORPUSCULAR VOLUME 93.6 fl (82.0-101.0); MEAN PLATELET VOLUME 11.3 fl (7.4-10.4); NEUTROPHIL # 11.1 10^3/ul (1.6-7.5); NEUTROPHILS % 81.2 % (39.0-77.0); PLATELET COUNT 172 10^3/UL (140-415); RED BLOOD COUNT 2.81 10^6/ul (4.70-6.10); RED CELL DISTRIBUTION WIDTH 17.8 % (11.5-14.5)
[2017-12-12 05:43] LABS: ALANINE AMINOTRANSFERASE 25 IU/L (13-69); ALBUMIN 3.2 g/dl (3.3-4.9); ALBUMIN/GLOBULIN RATIO 0.78; ALKALINE PHOSPHATASE 198 IU/L (42-121); ANION GAP 17 (8-16); ASPARTATE AMINO TRANSFERASE 22 IU/L (15-46); BILIRUBIN,INDIRECT 0.2 mg/dl (0-1.1); BILIRUBIN,TOTAL 0.6 mg/dl (0.2-1.3); BLOOD UREA NITROGEN 31 mg/dl (7-20); CALCIUM 9.4 mg/dl (8.4-10.2); CARBON DIOXIDE 26 mmol/L (21-31); CHLORIDE 101 mmol/L (97-110); CREATININE 3.08 mg/dl (0.61-1.24); GLUCOSE 97 mg/dl (70-220); POTASSIUM 3.3 mmol/L (3.5-5.1); SODIUM 141 mmol/L (135-144); TOTAL PROTEIN 7.3 g/dl (6.1-8.1)
[2017-12-12] MEDS: LANSOPRAZOLE 30 MG CAP GTB (06:03)
[2017-12-12] MEDS: LEVOTHYROXINE 75 MCG TAB PO (06:03)
[2017-12-12] MEDS: PROPOFOL 100 ML IV (08:01)
[2017-12-12] MEDS: FOLIC ACID 1 MG TAB PO (08:02)
[2017-12-12] MEDS: MULTIVIT/CA CARB/B CMPLX/FA TAB PO (08:02)
[2017-12-12] MEDS: SEVELAMER CARBONATE 0.8 GM PKT PO ×3 (08:02→21:00)
[2017-12-12] MEDS: FUROSEMIDE 20 MG INJ IV (08:02)
[2017-12-12] MEDS: MIDODRINE 5 MG TAB NGT ×2 (08:02→17:00)
[2017-12-12] MEDS: HEPARIN 5,000 UNIT/0.5 ML VIAL SC ×2 (08:31→21:00)
[2017-12-12] MEDS: BETAMETHASONE/CLOTRIMAZOLE 15 GM CR TOP ×2 (08:33→22:44)
[2017-12-12] MEDS: BALSAM PERU/CASTOR OIL 60 GM TUBE TOP ×2 (08:33→22:44)
[2017-12-12] MEDS: COLLAGENASE 30 GM TUBE TOP (08:33)
[2017-12-12] MEDS: POTASSIUM CHLORIDE 100 ML IVPB (10:10)
[2017-12-12] MEDS: CEFEPIME 1GM/50 ML (PMX) 50 ML IVPB (10:37)
[2017-12-12] MEDS: DEXTROSE 5%-0.45% NACL 1,000 ML IV (17:32)
[2017-12-13] MEDS: Insulin NOVOLOG SS MILD Algorithm (NPO/TPN/ENTERAL FEEDS) SC ×6 (01:00→21:00)
[2017-12-13] MEDS: FLUCONAZOLE 100 MG/NS (PMX) 50 ML IVPB ×2 (02:50→22:47)
[2017-12-13 06:59] LABS: VANCOMYCIN,RANDOM 17.4 ug/ml
[2017-12-13] MEDS: LEVOTHYROXINE 75 MCG TAB PO (07:00)
[2017-12-13] MEDS ORDERED: HYDROCODONE/APAP (10/325) TAB PO (07:00)
[2017-12-13] MEDS: LANSOPRAZOLE 30 MG CAP GTB (07:00)
[2017-12-13] MEDS: FOLIC ACID 1 MG TAB PO (09:00)
[2017-12-13] MEDS: MIDODRINE 5 MG TAB NGT ×2 (09:00→16:45)
[2017-12-13] MEDS: SEVELAMER CARBONATE 0.8 GM PKT PO ×3 (09:00→21:00)
[2017-12-13] MEDS: MULTIVIT/CA CARB/B CMPLX/FA TAB PO (09:00)
[2017-12-13] MEDS: BALSAM PERU/CASTOR OIL 60 GM TUBE TOP ×2 (09:34→21:13)
[2017-12-13] MEDS: BETAMETHASONE/CLOTRIMAZOLE 15 GM CR TOP ×2 (09:34→21:12)
[2017-12-13] MEDS: COLLAGENASE 30 GM TUBE TOP (09:35)
[2017-12-13] MEDS: HEPARIN 5,000 UNIT/0.5 ML VIAL SC ×2 (09:36→21:15)
[2017-12-13] MEDS ORDERED: ALBUMIN HUMAN 25% 50 ML IV (10:00)
[2017-12-13 11:00] LABS: ANION GAP 17 (8-16); BLOOD UREA NITROGEN 22 mg/dl (7-20); CALCIUM 9.2 mg/dl (8.4-10.2); CARBON DIOXIDE 27 mmol/L (21-31); CHLORIDE 101 mmol/L (97-110); CREATININE 2.44 mg/dl (0.61-1.24); GLUCOSE 86 mg/dl (70-220); POTASSIUM 3.5 mmol/L (3.5-5.1); SODIUM 141 mmol/L (135-144)
[2017-12-13] MEDS: CEFEPIME 1GM/50 ML (PMX) 50 ML IVPB (11:18)
[2017-12-13] MEDS: DEXTROSE 5%-0.45% NACL 1,000 ML IV (16:32)
[2017-12-13] MEDS: VANCOMYCIN 500MG/NS (PMX) 100 ML IVPB (16:35)
[2017-12-13] MEDS: EPOETIN 10000 UNITS/1 ML INJ (ESRD) SC (16:49)
[2017-12-14] MEDS: Insulin NOVOLOG SS MILD Algorithm (NPO/TPN/ENTERAL FEEDS) SC ×6 (01:00→21:00)
[2017-12-14] MEDS: LANSOPRAZOLE 30 MG CAP GTB (07:00)
[2017-12-14] MEDS: LEVOTHYROXINE 75 MCG TAB PO (07:00)
[2017-12-14] MEDS: MULTIVIT/CA CARB/B CMPLX/FA TAB PO (09:00)
[2017-12-14] MEDS: MIDODRINE 5 MG TAB NGT ×2 (09:00→17:00)
[2017-12-14] MEDS: FOLIC ACID 1 MG TAB PO (09:00)
[2017-12-14] MEDS: SEVELAMER CARBONATE 0.8 GM PKT PO ×3 (09:00→21:00)
[2017-12-14] MEDS: HEPARIN 5,000 UNIT/0.5 ML VIAL SC ×2 (09:13→21:20)
[2017-12-14] MEDS: COLLAGENASE 30 GM TUBE TOP (10:16)
[2017-12-14] MEDS: BETAMETHASONE/CLOTRIMAZOLE 15 GM CR TOP ×2 (10:16→21:21)
[2017-12-14] MEDS: BALSAM PERU/CASTOR OIL 60 GM TUBE TOP ×2 (10:16→21:21)
[2017-12-14 10:20] LABS: ANION GAP 20 (8-16); BLOOD UREA NITROGEN 29 mg/dl (7-20); CARBON DIOXIDE 24 mmol/L (21-31); CHLORIDE 103 mmol/L (97-110); CREATININE 3.46 mg/dl (0.61-1.24); GLUCOSE 70 mg/dl (70-220); POTASSIUM 3.4 mmol/L (3.5-5.1); SODIUM 144 mmol/L (135-144)
[2017-12-14] MEDS: DEXTROSE 5%-0.45% NACL 1,000 ML IV ×2 (19:00→23:59)
[2017-12-15] MEDS: hydrALAzine 20 MG INJ IV (00:40)
[2017-12-15] MEDS: Insulin NOVOLOG SS MILD Algorithm (NPO/TPN/ENTERAL FEEDS) SC ×6 (01:30→21:00)
[2017-12-15] MEDS: LEVOTHYROXINE 75 MCG TAB PO (07:00)
[2017-12-15] MEDS: LANSOPRAZOLE 30 MG CAP GTB (07:00)
[2017-12-15] MEDS: BETAMETHASONE/CLOTRIMAZOLE 15 GM CR TOP ×2 (08:13→21:40)
[2017-12-15] MEDS: BALSAM PERU/CASTOR OIL 60 GM TUBE TOP ×2 (08:13→21:40)
[2017-12-15] MEDS: COLLAGENASE 30 GM TUBE TOP (08:13)
[2017-12-15] MEDS: HEPARIN 5,000 UNIT/0.5 ML VIAL SC ×2 (08:17→21:32)
[2017-12-15] MEDS: MIDODRINE 5 MG TAB NGT ×2 (08:18→17:00)
[2017-12-15] MEDS: FOLIC ACID 1 MG TAB PO (08:18)
[2017-12-15] MEDS: MULTIVIT/CA CARB/B CMPLX/FA TAB PO (08:19)
[2017-12-15] MEDS: SEVELAMER CARBONATE 0.8 GM PKT PO ×3 (08:19→21:27)
[2017-12-15] MEDS: BARIUM SULFATE 135 ML (E-Z HD) PO (08:42)
[2017-12-15 08:56] LABS: ADD MAN DIFF? NO
[2017-12-15 08:59] LABS: BASOPHIL # 0.1 10^3/ul (0.0-0.1); BASOPHILS % 1.6 % (0.0-2.0); EOSINOPHILS # 0.3 10^3/ul (0.0-0.5); EOSINOPHILS % 3.1 % (0.0-7.0); HEMATOCRIT 28.2 % (42.0-52.0); HEMOGLOBIN 8.9 g/dl (14.0-18.0); LYMPHOCYTES # 1.1 10^3/ul (0.8-2.9); LYMPHOCYTES % 12.8 % (15.0-51.0); MEAN CORPUSCULAR HGB CONC 31.6 g/dl (32.0-37.0); MEAN CORPUSCULAR VOLUME 94.9 fl (82.0-101.0); MEAN PLATELET VOLUME 11.1 fl (7.4-10.4); MONOCYTE # 0.9 10^3/ul (0.3-0.9); MONOCYTES % 11.2 % (0.0-11.0); NEUTROPHIL # 5.9 10^3/ul (1.6-7.5); NEUTROPHILS % 70.7 % (39.0-77.0); PLATELET COUNT 208 10^3/UL (140-415); RED BLOOD COUNT 2.97 10^6/ul (4.70-6.10); RED CELL DISTRIBUTION WIDTH 18.6 % (11.5-14.5)
[2017-12-15 08:59] LABS: WHITE BLOOD COUNT 8.3 10^3/ul (4.8-10.8)
[2017-12-15 09:21] LABS: MAGNESIUM 2.1 mg/dl (1.7-2.5)
[2017-12-15 09:21] LABS: PHOSPHORUS 3.4 mg/dl (2.5-4.9)
[2017-12-15 09:29] LABS: ANION GAP 17 (8-16); BLOOD UREA NITROGEN 17 mg/dl (7-20); CARBON DIOXIDE 28 mmol/L (21-31); CHLORIDE 102 mmol/L (97-110); CREATININE 2.62 mg/dl (0.61-1.24); GLUCOSE 74 mg/dl (70-220); POTASSIUM 3.5 mmol/L (3.5-5.1); SODIUM 143 mmol/L (135-144)
[2017-12-15] MEDS: EPOETIN 10000 UNITS/1 ML INJ (ESRD) SC (18:04)
[2017-12-16] MEDS: Insulin NOVOLOG SS MILD Algorithm (NPO/TPN/ENTERAL FEEDS) SC ×6 (01:00→21:00)
[2017-12-16] MEDS: LEVOTHYROXINE 75 MCG TAB PO (06:20)
[2017-12-16] MEDS: LANSOPRAZOLE 30 MG CAP GTB (06:21)
[2017-12-16] MEDS: MULTIVIT/CA CARB/B CMPLX/FA TAB PO (09:25)
[2017-12-16] MEDS: FOLIC ACID 1 MG TAB PO (09:26)
[2017-12-16] MEDS: MIDODRINE 5 MG TAB NGT (09:27)
[2017-12-16] MEDS: HEPARIN 5,000 UNIT/0.5 ML VIAL SC ×2 (09:28→21:47)
[2017-12-16] MEDS: BALSAM PERU/CASTOR OIL 60 GM TUBE TOP ×2 (09:32→21:48)
[2017-12-16] MEDS: COLLAGENASE 30 GM TUBE TOP (09:32)
[2017-12-16] MEDS: BETAMETHASONE/CLOTRIMAZOLE 15 GM CR TOP ×2 (09:36→21:48)
[2017-12-16] MEDS: SEVELAMER CARBONATE 0.8 GM PKT PO ×3 (09:41→21:31)
[2017-12-16] MEDS: DEXTROSE 5%-0.45% NACL 1,000 ML IV (16:30)
[2017-12-16] MEDS: ALBUMIN HUMAN 25% 50 ML IV (17:22)
[2017-12-17] MEDS: Insulin NOVOLOG SS MILD Algorithm (NPO/TPN/ENTERAL FEEDS) SC ×5 (01:00→17:00)
[2017-12-17] MEDS: LANSOPRAZOLE 30 MG CAP GTB (06:47)
[2017-12-17] MEDS: LEVOTHYROXINE 75 MCG TAB PO (06:47)
[2017-12-17 07:31] LABS: ADD MAN DIFF? NO
[2017-12-17 07:33] LABS: BASOPHIL # 0.1 10^3/ul (0.0-0.1); BASOPHILS % 1.2 % (0.0-2.0); EOSINOPHILS # 0.3 10^3/ul (0.0-0.5); EOSINOPHILS % 3.4 % (0.0-7.0); HEMOGLOBIN 9.3 g/dl (14.0-18.0); LYMPHOCYTES # 1.3 10^3/ul (0.8-2.9); LYMPHOCYTES % 16.2 % (15.0-51.0); MEAN CORPUSCULAR HEMOGLOBIN 30.3 pg (29.0-33.0); MEAN CORPUSCULAR HGB CONC 32.1 g/dl (32.0-37.0); MEAN CORPUSCULAR VOLUME 94.5 fl (82.0-101.0); MEAN PLATELET VOLUME 10.7 fl (7.4-10.4); MONOCYTE # 0.9 10^3/ul (0.3-0.9); MONOCYTES % 10.7 % (0.0-11.0); NEUTROPHIL # 5.5 10^3/ul (1.6-7.5); NEUTROPHILS % 68.1 % (39.0-77.0); PLATELET COUNT 229 10^3/UL (140-415); RED BLOOD COUNT 3.07 10^6/ul (4.70-6.10)
[2017-12-17 08:01] LABS: ANION GAP 16 (8-16); BLOOD UREA NITROGEN 10 mg/dl (7-20); CARBON DIOXIDE 28 mmol/L (21-31); CHLORIDE 102 mmol/L (97-110); CREATININE 2.34 mg/dl (0.61-1.24); GLUCOSE 80 mg/dl (70-220); POTASSIUM 3.7 mmol/L (3.5-5.1); SODIUM 142 mmol/L (135-144)
[2017-12-17] MEDS: MULTIVIT/CA CARB/B CMPLX/FA TAB PO (08:46)
[2017-12-17] MEDS: FOLIC ACID 1 MG TAB PO (08:46)
[2017-12-17] MEDS: SEVELAMER CARBONATE 0.8 GM PKT PO ×2 (08:46→12:29)
[2017-12-17] MEDS: MIDODRINE 5 MG TAB NGT (08:47)
[2017-12-17] MEDS: HEPARIN 5,000 UNIT/0.5 ML VIAL SC (08:56)
[2017-12-17] MEDS: BETAMETHASONE/CLOTRIMAZOLE 15 GM CR TOP (08:57)
[2017-12-17] MEDS: BALSAM PERU/CASTOR OIL 60 GM TUBE TOP (08:57)
[2017-12-17] MEDS: COLLAGENASE 30 GM TUBE TOP (08:57)
[2017-12-17] MEDS: EPOETIN 10000 UNITS/1 ML INJ (ESRD) SC (17:12)
== END 2017-12-17 21:00 | DRG 207 ==
LOC: ICU 11-24 09:31 → MS4 12-12 16:05 → E/R 15:49 → TEL 11-28 22:11 → PP2 11-23 02:39
PROC: 5A1945Z Respiratory Ventilation, 24-96 Consecutive Hours (ICD-10-PCS; 2017-11-24)
PROC: 0BH17EZ Insertion of Endotracheal Airway into Trachea, Via Natural or Artificial Opening (ICD-10-PCS; 2017-11-24)
PROC: 0BH17EZ Insertion of Endotracheal Airway into Trachea, Via Natural or Artificial Opening (ICD-10-PCS; 2017-11-24)
PROC: 5A1D70Z Performance of Urinary Filtration, Intermittent, Less than 6 Hours Per Day (ICD-10-PCS; 2017-11-25)
PROC: 5A1955Z Respiratory Ventilation, Greater than 96 Consecutive Hours (ICD-10-PCS; principal; 2017-11-30)
PROC: 0W993ZZ Drainage of Right Pleural Cavity, Percutaneous Approach (ICD-10-PCS; 2017-12-08)
PROC: 0W993ZZ Drainage of Right Pleural Cavity, Percutaneous Approach (ICD-10-PCS; 2017-12-11)
PROC: 0W9B3ZZ Drainage of Left Pleural Cavity, Percutaneous Approach (ICD-10-PCS; 2017-12-11)
PROC: 06HY33Z Insertion of Infusion Device into Lower Vein, Percutaneous Approach (ICD-10-PCS; 2017-12-11)
DX: J96.00 Acute respiratory failure, unspecified whether with hypoxia or hypercapnia (principal); J69.0 Pneumonitis due to inhalation of food and vomit; I21.A1 Myocardial infarction type 2; I46.9 Cardiac arrest, cause unspecified; L89.153 Pressure ulcer of sacral region, stage 3; G92 Toxic encephalopathy; N18.6 End stage renal disease; B37.1 Pulmonary candidiasis; I87.1 Compression of vein; J81.1 Chronic pulmonary edema; G81.94 Hemiplegia, unspecified affecting left nondominant side; G93.1 Anoxic brain damage, not elsewhere classified; T17.590A Other foreign object in bronchus causing asphyxiation, initial encounter; I82.612 Acute embolism and thrombosis of superficial veins of left upper extremity; I12.0 Hypertensive chronic kidney disease with stage 5 chronic kidney disease or end stage renal disease; E11.22 Type 2 diabetes mellitus with diabetic chronic kidney disease; Z99.2 Dependence on renal dialysis; D63.1 Anemia in chronic kidney disease; R16.1 Splenomegaly, not elsewhere classified; Z74.01 Bed confinement status; Z85.72 Personal history of non-Hodgkin lymphomas; T40.4X5A Adverse effect of other synthetic narcotics, initial encounter; Y92.239 Unspecified place in hospital as the place of occurrence of the external cause; R40.2434 Glasgow coma scale score 3-8, 24 hours or more after hospital admission; R13.10 Dysphagia, unspecified; D69.6 Thrombocytopenia, unspecified; D64.9 Anemia, unspecified; B96.5 Pseudomonas (aeruginosa) (mallei) (pseudomallei) as the cause of diseases classified elsewhere; B95.2 Enterococcus as the cause of diseases classified elsewhere
CPT/HCPCS: 31500; 32555; 36415; 36600; 70450; 70551; 71045; 71260; 71275; 74176; 74230; 76942; 78452; 80048; 80053; 80061; 80202; 82140; 82550; 82553; 82728; 82803; 82945; 82962; 83540; 83605; 83615; 83690; 83735; 84100; 84155; 84157; 84165; 84484; 84560; 85014; 85018; 85025; 85049; 85362; 85378; 85384; 85610; 85670; 85730; 86022; 86038; 86430; 86704; 86803; 87040; 87070; 87075; 87081; 87102; 87116; 87340; 88104; 88305; 89051; 89220; 90935; 92526; 92610; 92611; 92950; 93005; 93017; 93306; 93970; 94002; 94003; 94660; 94770; 95819; 96374; 96375; 97110; 97163; 97164; 97530; 99285-25

== ENCOUNTER 2018-01-03 14:31 | Emergency (ER) | payer MEDICARE, OTHER ==
[2018-01-03 18:21] LABS: ADD MAN DIFF? NO
[2018-01-03 18:25] LABS: BASOPHIL # 0.1 10^3/ul (0.0-0.1); EOSINOPHILS # 0.2 10^3/ul (0.0-0.5); EOSINOPHILS % 1.6 % (0.0-7.0); HEMATOCRIT 33.1 % (42.0-52.0); HEMOGLOBIN 10.8 g/dl (14.0-18.0); LYMPHOCYTES # 1.1 10^3/ul (0.8-2.9); LYMPHOCYTES % 11.4 % (15.0-51.0); MEAN CORPUSCULAR HEMOGLOBIN 29.4 pg (29.0-33.0); MEAN CORPUSCULAR HGB CONC 32.6 g/dl (32.0-37.0); MEAN CORPUSCULAR VOLUME 90.2 fl (82.0-101.0); MEAN PLATELET VOLUME 10.3 fl (7.4-10.4); MONOCYTE # 0.7 10^3/ul (0.3-0.9); MONOCYTES % 7.2 % (0.0-11.0); NEUTROPHIL # 7.4 10^3/ul (1.6-7.5); NEUTROPHILS % 78.6 % (39.0-77.0); PLATELET COUNT 142 10^3/UL (140-415); RED BLOOD COUNT 3.67 10^6/ul (4.70-6.10)
[2018-01-03 18:25] LABS: WHITE BLOOD COUNT 9.4 10^3/ul (4.8-10.8)
[2018-01-03 18:55] LABS: ANION GAP 17 (8-16); BLOOD UREA NITROGEN 28 mg/dl (7-20); CALCIUM 8.6 mg/dl (8.4-10.2); CARBON DIOXIDE 24 mmol/L (21-31); CHLORIDE 97 mmol/L (97-110); GLUCOSE 156 mg/dl (70-220); SODIUM 134 mmol/L (135-144)
[2018-01-03 19:06] LABS: TROPONIN-I 0.025 ng/ml (0.00-0.12)
[2018-01-03] MEDS: CEFTRIAXONE 1 GM/50 ML (PMX) 50 ML IVPB (19:24)
[2018-01-03 19:34] LABS: B-TYPE NATRIURETIC PEPTIDE 77800 PG/ML (0-125)
[2018-01-03] MEDS: morphine 4 MG/ML VIAL IV (19:38)
== END 2018-01-03 20:44 | disposition home or self-care (01) ==
LOC: E/R 14:31
DX: N45.1 Epididymitis (principal); D64.9 Anemia, unspecified; N18.6 End stage renal disease; I12.0 Hypertensive chronic kidney disease with stage 5 chronic kidney disease or end stage renal disease; E11.22 Type 2 diabetes mellitus with diabetic chronic kidney disease; I25.10 Atherosclerotic heart disease of native coronary artery without angina pectoris; Z79.4 Long term (current) use of insulin
CPT/HCPCS: 71045; 76870; 80048; 82962; 83880; 84484; 85025; 93005; 96374; 96375; 99285-25